=== PATIENT | female | born 1970 | race Caucasian/White ===

== ENCOUNTER 2017-10-01 10:00 | Outpatient (RCR) | payer MEDICAID, SELFPAY ==
--- NOTE | 2017-09-22 11:42 | HMH.PTOPEV ---
Rehab Outpatient Evaluation Rehab OP Evaluation Start: 09/22/17 10:36 Freq: Status: Active Protocol: Document 09/22/17 10:37 TFRY (Rec: 09/22/17 10:59 TFRY [id number]) Electronically Signed By Lilian Stephenson OT 09/22/17 10:37 Outpatient Therapy Subjective History Subjective History THIS IS A 46 YEAR OLD RIGHT HANDED FEMALE REFERRED TO OCCUPATIONAL THERAPY FOR IMPINGEMENT SYNDROME OF LEFT SHOULDER. PATIENT REPORTS THE PROBLEM HAS BEEN ONGOING FOR THE LAST 2-3 MONTHS. SHE CAN NOT RECALL DOING ANYTHING TO HER SHOULDER. Chief Complaint Pain Symptom Type Throb Sharp Other Symptoms Relieved By Rest/Positioning Symptoms Aggravated By Physical Activity Prior Functional Limitations None Current Functional Limitations Reaching Housework Dressing Sleeping Symptom Description Activity Dependent Level of pain today (0-10) 0 Pain scale - at its best (0-10) 0 Pain scale - at its worst (0-10) 9 Shoulder/Elbow Eval Shoulder Objective Measurements Palpation Tenderness tenderness shoulder exam standard left Shoulder Palpation Findings Tenderness Posture Shoulder Posture Sitting Position (L) Rounded Shoulder Posture Standing Position (L) Rounded Shoulder ROM Left Shoulder ROM Limitations Pain Shoulder Abduction Active Range of 100 Motion (degrees) Shoulder Abduction Passive Range of 120 Motion (degrees) Shoulder Flexion Active Range of Motion 115 (degrees) Query Text: Shoulder Flexion Passive Range of Motion 140 (degrees) Shoulder External Rotation Active Range 70 of Motion (degrees) Shoulder External Rotation Passive Range WFL of Motion (degrees) Shoulder Internal Rotation Active Range 30 of Motion (degrees) Shoulder Internal Rotation Passive Range 42 of Motion (degrees) Shoulder Extension Active Range of 43 Motion (degrees) pain with active ROM shoulder exam left standard pain with passive ROM shoulder exam left standard decreased ROM shoulder exam standard left Shoulder MMT Shoulder Abduction Strength Grade 3+ Fair+ Shoulder Extension Strength Grade 3+ Fair+ Shoulder Flexion Strength Grade 3+ Fair+ Shoulder Horizontal Abduction Strength 3+ Fair+
== END 2017-10-01 10:02 | disposition home or self-care (01) ==
LOC: OT 10:00
PROVIDERS: PCP Internal Medicine Adolescent Medicine; Visit Provider Internal Medicine Adolescent Medicine
DX: M75.42 Impingement syndrome of left shoulder (principal)
CPT/HCPCS: 97014; 97033; 97110; 97163; 97165; G0283

== ENCOUNTER 2018-02-10 14:00 | Outpatient (RCR) | payer MEDICAID, SELFPAY ==
--- NOTE | 2018-01-07 10:45 | HMH.PTOPEV ---
Rehab Outpatient Evaluation Rehab OP Evaluation Start: 01/07/18 10:30 Freq: Status: Active Protocol: Document 01/07/18 10:31 RMARSHALL (Rec: 01/07/18 10:45 [facility] [id number]) Electronically Signed By Savannah Yap OT 01/07/18 10:31 Outpatient Therapy Subjective History Subjective History Pt is a 47 year old female who reports to therapy for evaluation to left shoulder. Pt was seen in September for left shoulder, but she was only able to attend two visits because her mother became ill and . Pt reports her pain in the left shoulder started ~1 year ago. She does not recall a specific injury causing the symptoms to begin. At this time, pt demonstrates with decreased AROM and Strength at left shoulder and activity dependent pain. Pt will continue to be seen in order to address these deficits. Chief Complaint Pain Stiff Symptom Type Ache Throb Sharp Dull Stabbing Shooting Symptoms Relieved By Nothing Symptoms Aggravated By Prone Supine Physical Activity Twisting Lifting Prior Functional Limitations None Current Functional Limitations Reaching Lifting Housework Dressing Desk Work/Reading Sleeping Recreation Activity Symptom Description Intermittent Activity Dependent Level of pain today (0-10) 1 Pain scale - at its best (0-10) 1 Pain scale - at its worst (0-10) 8 Shoulder/Elbow Eval Shoulder Objective Measurements Palpation Tenderness tenderness shoulder exam standard left tenderness over the bicipital tendon left shoulder exam standard Shoulder Palpation Findings Tenderness Shoulder Palpation Overall Comment Pt also has tenderness down middle deltoid, celestin
== END 2018-02-10 14:01 | disposition home or self-care (01) ==
LOC: OT 14:00
PROVIDERS: PCP Internal Medicine Adolescent Medicine; Visit Provider Internal Medicine Adolescent Medicine
DX: M75.42 Impingement syndrome of left shoulder (principal)
CPT/HCPCS: 97014; 97033; 97110; 97166; G0283

== ENCOUNTER → 2019-01-05 12:16 | Outpatient (CLI) | payer MEDICAID, SELFPAY ==
[2019-01-05 14:02] LABS: Basophils % 0.7 % (0.1-2.0); Eosinophils # 0.1 K/mm3 (0.0-0.4); Eosinophils % 1.8 % (0.1-12.0); Hematocrit 47.3 % (37.0-47.0); Hemoglobin 15.8 g/dL (12.2-16.2); Lymphocytes # 2.2 K/mm3 (0.7-4.5); Lymphocytes % 40.6 % (10-50); Mean Corpuscular HGB Conc 33.5 g/dL (31.8-35.4); Mean Corpuscular Hemoglobin 28.6 pg (27.0-31.2); Mean Corpuscular Volume 85.5 fl (81-99); Mean Platelet Volume 9.4 fl (7.4-10.4); Monocytes # 0.2 K/mm3 (0.1-1.0); Monocytes % 4.6 % (1.7-9.3); Neutrophils # 2.8 K/mm3 (1.8-7.8); Neutrophils % 52.3 % (37.0-80.0); Platelet Count 345 K/mm3 (142-424); Red Blood Count 5.53 M/mm3 (4.20-5.40); Red Cell Distribution Width 12.8 % (11.5-17.5); White Blood Count 5.3 K/mm3 (4.8-10.8)
[2019-01-05 16:19] LABS: Alanine Aminotransferase 41 U/L (12-78); Albumin Level 4.4 gm/dL (3.4-5.0); Albumin/Globulin Ratio 1.2 (1.1-1.8); Alkaline Phosphatase 78 U/L (46-116); Anion Gap 14.6 mEq/L (5-15); Aspartate Amino Transferase 26 U/L (15-37); Bilirubin,Total 0.7 mg/dL (0.2-1.0); Blood Urea Nitrogen 15 mg/dL (7-18); Calcium 9.7 mg/dL (8.5-10.1); Carbon Dioxide 28 mmol/L (21.0-32.0); Chloride 101 mmol/L (98-107); Chol/HDL Ratio 3.1 (1-3.5); Cholesterol 183 mg/dL (140-200); Creatinine,Serum 0.67 mg/dL (0.55-1.02); Estimated Glomerular Filt Rate 94 ml/min (>60); Free Thyroxine Index 2.3 ug/dL (5.93-13.13); GFR (African American) 113 ML/MIN (>60); Globulin 3.7 gm/dl (1.3-3.2); Glucose 83 mg/dL (74-106); HDL Cholesterol 59 mg/dL (29-89); LDL Cholesterol 104 mg/dL (0-130); Magnesium 2.3 mg/dL (1.4-2.2); Potassium 4.6 mmoL/L (3.5-5.1); Sodium 139 mmol/L (136-145); T4 (Thyroxine) 7.6 ug/dl (4.7-13.3); Thyroid Stimulating Hormone 2.26 uIU/ml (0.358-3.740); Total Protein,Serum 8.1 gm/dL (6.4-8.2); Triglycerides 98 mg/dL (30-200); Triiodothryronine (T3) Uptake 30 % (31-39); VLDL Cholesterol 20 mg/dL (0-40)
[2019-01-08 06:40] LABS: Vitamin B12 650 pg/mL (232-1245); Vitamin D 25 Hydroxy 22.4 ng/mL (30.0-100.0)
== END ==
PROVIDERS: Visit Provider Internal Medicine Adolescent Medicine
DX: Z00.00 Encounter for general adult medical examination without abnormal findings (principal); R53.83 Other fatigue; R53.81 Other malaise; E66.01 Morbid (severe) obesity due to excess calories; E55.9 Vitamin D deficiency, unspecified
CPT/HCPCS: 36415; 80053; 80061; 82607; 82652; 83036; 83735; 84436; 84443; 84479; 85025

== ENCOUNTER → 2019-04-29 12:14 | Outpatient (CLI) | payer MEDICAID, SELFPAY ==
[2019-04-29 13:09] LABS: Basophils # 0.1 K/mm3 (0-0.2); Basophils % 1.1 % (0.1-2.0); Eosinophils # 0.1 K/mm3 (0.0-0.4); Eosinophils % 1.7 % (0.1-12.0); Hematocrit 43.3 % (37.0-47.0); Hemoglobin 14.2 g/dL (12.2-16.2); Lymphocytes # 2.2 K/mm3 (0.7-4.5); Mean Corpuscular HGB Conc 32.7 g/dL (31.8-35.4); Mean Corpuscular Hemoglobin 28.5 pg (27.0-31.2); Mean Corpuscular Volume 87.2 fl (81-99); Mean Platelet Volume 8.7 fl (7.4-10.4); Monocytes # 0.3 K/mm3 (0.1-1.0); Monocytes % 5.4 % (1.7-9.3); Neutrophils # 3.6 K/mm3 (1.8-7.8); Neutrophils % 56.8 % (37.0-80.0); Platelet Count 396 K/mm3 (142-424); Red Blood Count 4.97 M/mm3 (4.20-5.40); Red Cell Distribution Width 12.7 % (11.5-17.5); White Blood Count 6.4 K/mm3 (4.8-10.8)
[2019-04-29 15:21] LABS: Hemoglobin A1C 5.3 % (0.0-7.0)
[2019-04-29 15:33] LABS: Alanine Aminotransferase 39 U/L (12-78); Albumin Level 4.1 gm/dL (3.4-5.0); Albumin/Globulin Ratio 1.1 (1.1-1.8); Alkaline Phosphatase 83 U/L (46-116); Aspartate Amino Transferase 18 U/L (15-37); Bilirubin,Total 0.6 mg/dL (0.2-1.0); Blood Urea Nitrogen 19 mg/dL (7-18); Calcium 9.8 mg/dL (8.5-10.1); Carbon Dioxide 30 mmol/L (21.0-32.0); Chloride 102 mmol/L (98-107); Creatinine,Serum 0.65 mg/dL (0.55-1.02); Estimated Glomerular Filt Rate 97 ml/min (>60); GFR (African American) 117 ML/MIN (>60); Globulin 3.7 gm/dl (1.3-3.2); Glucose 87 mg/dL (74-106); Sodium 140 mmol/L (136-145); T4 (Thyroxine) 9.6 ug/dl (4.7-13.3); Thyroid Stimulating Hormone 2.84 uIU/ml (0.358-3.740); Total Protein,Serum 7.8 gm/dL (6.4-8.2); Triiodothryronine (T3) Uptake 31 % (31-39)
[2019-05-01 16:28] LABS: Vitamin D 25 Hydroxy 30.1 ng/mL (30.0-100.0)
[2019-05-01 16:33] LABS: Vitamin B12 657 pg/mL (232-1245)
[2019-05-03 06:55] LABS: Treponema pallidum Ab (FTA-ABS Non Reactive (Non Reactive)
== END ==
PROVIDERS: Visit Provider Internal Medicine Adolescent Medicine
DX: E55.9 Vitamin D deficiency, unspecified (principal); R20.2 Paresthesia of skin; H53.2 Diplopia
CPT/HCPCS: 36415; 80053; 82607; 82652; 83036; 84436; 84443; 84479; 85025; 86780

== ENCOUNTER → 2019-05-02 16:49 | Outpatient (CLI) | payer MEDICAID, SELFPAY | PROVIDERS: PCP Internal Medicine Adolescent Medicine; Visit Provider Internal Medicine Adolescent Medicine | DX: R20.2 Paresthesia of skin (principal); H53.2 Diplopia ==

== ENCOUNTER → 2019-05-03 16:33 | Outpatient (CLI) | payer MEDICAID, SELFPAY | PROVIDERS: PCP Internal Medicine Adolescent Medicine; Visit Provider Internal Medicine Adolescent Medicine | DX: H53.2 Diplopia (principal); R20.2 Paresthesia of skin ==

== ENCOUNTER → 2019-05-23 13:34 | Outpatient (CLI) | payer MEDICAID, SELFPAY ==
--- NOTE | 2019-05-23 13:38 | CT_ITS ---
PROCEDURE: CT HEAD/BRAIN WO/W CON CLINICAL INDICATION: DIPLOPIA, PARASTHESIA Diplopia, paresthesia, tingling right side of face COMPARISON: No exams were available for comparison TECHNIQUE: IV Contrast: 100ML OPITRAY 320 Images are obtained without and with contrast enhancement Axial images obtained with sagittal and coronal reformats. All CT scans at the facility use one or more dose reduction, viz: automated exposure control, ma/kV adjustment per patient size (including targeted exams where dose is matched to indication, i.e. head), or iterative reconstruction technique. FINDINGS: No midline shift, mass effect, intracranial hemorrhage, hydrocephalus, or extra-axial fluid collection is evident. No enhancing lesions are evident. No large aneurysms apparent. The calvarium has an unremarkable appearance. No mastoid effusion no sinus air-fluid level IMPRESSION: Negative CT head without and with contrast Dictated by: Hima Gong MD 05/23/2019 16:24 Electronically signed by Hima Gong MD in [place] 05/23/2019 16:24
== END ==
PROVIDERS: PCP Internal Medicine Adolescent Medicine; Visit Provider Internal Medicine Adolescent Medicine
DX: H53.2 Diplopia (principal); R20.2 Paresthesia of skin
CPT/HCPCS: 70470; Q9967

== ENCOUNTER → 2020-05-26 09:29 | Outpatient (CLI) | payer BC, SELFPAY ==
[2020-05-26 10:19] LABS: Basophils # 0.1 K/mm3 (0-0.2); Eosinophils # 0.1 K/mm3 (0.0-0.4); Eosinophils % 1.8 % (0.1-12.0); Hematocrit 40.2 % (37.0-47.0); Hemoglobin 13.9 g/dL (12.2-16.2); Lymphocytes # 1.9 K/mm3 (0.7-4.5); Lymphocytes % 33.7 % (10-50); Mean Corpuscular HGB Conc 34.5 g/dL (31.8-35.4); Mean Corpuscular Hemoglobin 30.2 pg (27.0-31.2); Mean Corpuscular Volume 87.3 fl (81-99); Monocytes # 0.3 K/mm3 (0.1-1.0); Monocytes % 5.2 % (1.7-9.3); Neutrophils # 3.2 K/mm3 (1.8-7.8); Neutrophils % 58.4 % (37.0-80.0); Platelet Count 293 K/mm3 (142-424); Red Blood Count 4.61 M/mm3 (4.20-5.40); Red Cell Distribution Width 12.3 % (11.5-17.5); White Blood Count 5.5 K/mm3 (4.8-10.8)
[2020-05-26 10:40] LABS: Chloride 104 mmol/L (98-107); Potassium 5.5 mmoL/L (3.5-5.1); Sodium 140 mmol/L (136-145)
[2020-05-26 10:42] LABS: Alanine Aminotransferase 55 U/L (12-78); Alkaline Phosphatase 100 U/L (38-126); Aspartate Amino Transferase 61 U/L (14-36); Bilirubin,Total 0.6 mg/dl (0.2-1.3); Blood Urea Nitrogen 21 mg/dl (7-17); Estimated Glomerular Filt Rate 89 ml/min (>60); GFR (African American) 107 ML/MIN (>60)
[2020-05-26 10:43] LABS: Albumin Level 4.1 g/dl (3.5-5.0); Albumin/Globulin Ratio 1.4 (1.1-1.8); Anion Gap 13.5 mEq/L (5-15); Calcium 9.9 mg/dl (8.4-10.2); Carbon Dioxide 28 mmol/L (22.0-30.0); Globulin 2.9 g/dL (1.3-3.2); Glucose 103 mg/dl (74-100); Iron 87 ug/dL (37-170)
[2020-05-26 10:57] LABS: Total Iron Binding Capacity 319 ug/dL (265-497)
[2020-05-26 11:24] LABS: Ferritin 244 ng/ml (6.24-137)
[2020-05-27 10:44] LABS: RA Latex Turbid. <10.0 IU/mL (0.0-13.9)
[2020-05-28 14:11] LABS: Anti-Centromere B Antibodies <0.2 AI (0.0-0.9); Anti-Jo-1 <0.2 AI (0.0-0.9); Anti-Smith Antibody <0.2 AI (0.0-0.9); Antichromatin Antibodies <0.2 AI (0.0-0.9); Antiscleroderma-70 Antibodies <0.2 AI (0.0-0.9); RNP Antibodies <0.2 AI (0.0-0.9); Sjogren's Anti-SS-A <0.2 AI (0.0-0.9); Sjogren's Anti-SS-B <0.2 AI (0.0-0.9)
[2020-05-28 15:40] LABS: Anti-DNA (DS) Ab Qn 1 IU/mL (0-9)
[2020-05-29 14:01] LABS: Anti-Cyclic Citrullinated Pept 38 units (0-19)
== END ==
PROVIDERS: Visit Provider Internal Medicine Adolescent Medicine
DX: R20.2 Paresthesia of skin (principal)
CPT/HCPCS: 36415; 80053; 82728; 83540; 83550; 85025; 86200; 86225; 86235; 86431

== ENCOUNTER → 2020-07-19 11:54 | Outpatient (CLI) | payer BC, SELFPAY ==
[2020-07-20 14:10] LABS: Covid-19 Nasal PCR Sendout Lex NOT DETECTED
== END ==
PROVIDERS: PCP Internal Medicine Adolescent Medicine; Visit Provider Nurse Practitioner Family
DX: Z03.818 Encounter for observation for suspected exposure to other biological agents ruled out (principal); R05 Cough
CPT/HCPCS: U0004

== ENCOUNTER 2020-11-30 11:05 | Emergency (ER) | payer BC, SELFPAY ==
[2020-11-30] VITALS (15 sets, daily range): BP systolic 112–150; BP diastolic 57–66; PULSE 75–92; RESP 15–24; TEMP 37.2; O2SAT 95–100; BMI 47.4
--- NOTE | 2020-11-30 11:18 | CT_ITS ---
Procedure: CT ANGIO NECK CLINICAL HISTORY: left side paresthesia Presyncope, balance COMPARISON: CT CT ANGIO HEAD from 11/30/2020 TECHNIQUE: IV Contrast: 100ml Isovue 370 Axial images obtained with sagittal and coronal reformats. All CT scans at the facility use one or more dose reduction, viz: automated exposure control, ma/kV adjustment per patient size (including targeted exams where dose is matched to indication, i.e. head), or iterative reconstruction technique. FINDINGS: CTA neck: The aortic arch, great vessels, carotid arteries, and vertebral arteries have an unremarkable appearance. No significant stenosis, dissection, or aneurysm apparent. CTA brain: The cavernous portion of the ICAs are unremarkable. No aneurysm, AVM, or major branch occlusive changes evident. The M1 segment of the left middle cerebral artery has a somewhat beaded appearance without significant stenosis. The M1 segment on the right has an unremarkable appearance. The P1 segment of the left posterior cerebral artery also has a somewhat beaded appearance. Luminal irregularity involves the P2 segment of the right posterior cerebral artery. No major occlusive change apparent. No enhancing lesions are evident. IMPRESSION: 1. CTA neck: Unremarkable. No stenotic lesions dissection or other significant anomalies. 2. CTA brain: Beaded appearance involves the M1 segment of the left middle cerebral artery and left P1 segment. This is a nonspecific finding but could be seen with atherosclerotic change, fibromuscular dysplasia, or vasculitis. These areas do not cause any significant stenosis 3. Luminal irregularity involves the P2 segment of the right posterior cerebral artery more suggestive of atherosclerotic changes. Dictated by: Hima Gong MD 11/30/2020 13:34 Hima Gong MD in [place] 11/30/2020 13:35
--- NOTE | 2020-11-30 11:18 | CT_ITS ---
PROCEDURE: CT HEAD/BRAIN WO CON CLINICAL INDICATION: left side paresthesia Left-sided facial tingling, presyncope and try allan history 3 hiatal thickening drink to the at the at [place] COMPARISON: CT CT HEAD/BRAIN WO/W CON from 05/23/2019 TECHNIQUE: Axial images obtained. All CT scans at the facility use one or more dose reduction, viz: automated exposure control, ma/kV adjustment per patient size (including targeted exams where dose is matched to indication, i.e. head), or iterative reconstruction technique. FINDINGS: No midline shift, mass effect, intracranial hemorrhage, hydrocephalus, or extra-axial fluid collection is evident. The calvarium has an unremarkable appearance. No mastoid effusion. No sinus air-fluid level. IMPRESSION: No acute intracranial finding Dictated by: Hima Gong MD 11/30/2020 13:20 Hima Gong MD in [place] 11/30/2020 13:20
--- NOTE | 2020-11-30 11:23 | HMH.EDGENADL ---
ED Disposition Clinical Impression: TIA (transient ischemic attack) Disposition: Home, Self-Care Condition on Discharge: Good Additional Instructions: Return the emergency department for weakness numbness or recurrent dizziness. Otherwise follow-up with your neurologist within the next few days Referrals: Aureliano Moncada MD [Primary Care Provider] - - Critical Care Critical Care Time: No Attestation: On 11/30/20, the high probability of a clinically significant, sudden or life threatening deterioration of the following system(s) required my full and direct attention, intervention and personal management. The time I documented below is in addition to time spent performing reported procedures but includes the following listed in this critical care notation. Medical Decision Making - Medical Records Medical records reviewed: Yes: I reviewed the patient's medical records. - Mian Inquiry Pt receiving controlled substance: No Vital Signs: 11/30/20 11:07 11/30/20 11:11 11/30/20 11:12 Temperature 99.0 F Temperature Source Oral Pulse Rate 92 H 87 Pulse Rate [Left Radial] 92 H Respiratory Rate 21 20 Blood Pressure 150/66 H Blood Pressure [Right Arm] 150/66 H Blood Pressure Mean 95 Blood Pressure Mean [Right Arm] 94 Blood Pressure Source [Right Arm] Automatic Cuff Blood Pressure Position [Right Arm] Sitting 02 Sat by Pulse Oximetry 99 99 99 Oxygen Delivery Method Room Air 11/30/20 11:15 11/30/20 11:30 11/30/20 11:31 Temperature Temperature Source Pulse Rate 87 86 89 Pulse Rate [Left Radial] Respiratory Rate 16 16 15 Blood Pressure 127/61 127/61 Blood Pressure [Right Arm] Blood Pressure Mean 83 Blood Pressure Mean [Right Arm] Blood Pressure Source [Right Arm] Blood Pressure Position [Right Arm] 02 Sat by Pulse Oximetry 99 97 98 Oxygen Delivery Method 11/30/20 12:01 11/30/20 12:15 11/30/20 13:04 Temperature Temperature Source Pulse Rate 79 80 86 Pulse Rate [Left Radial] Respiratory Rate 19 24 Blood Pressure 118/58 L Blood Pressure [Right Arm] Blood Pressure Mean 81 Blood Pressure Mean [Right Arm] Blood Pressure Source [Right Arm] Blood Pressure Position [Right Arm] 02 Sat by Pulse Oximetry 100 99 95 Oxygen Delivery Method 11/30/20 13:15 11/30/20 13:17 Temperature Temperature Source Pulse Rate 75 77 Pulse Rate [Left Radial] Respiratory Rate 22 20 Blood Pressure 114/59 L Blood Pressure [Right Arm] Blood Pressure Mean 75 Blood Pressure Mean [Right Arm] Blood Pressure Source [Right Arm] Blood Pressure Position [Right Arm] 02 Sat by Pulse Oximetry 99 100 Oxygen Delivery Method - Lab Data Lab Results 11/30/20 11:30: WBC 5.2, RBC 4.83, Hgb 13.5, Hct 42.6, MCV 88.2, MCH 28.1, MCHC 31.8, RDW 12.4, Plt Count 323, MPV 8.8, Neut % (Auto) 57.3, Lymph % (Auto) 34.5, [place] % (Auto) 4.8, Eos % (Auto) 2.4, Baso % (Auto) 1.1, Neut # (Auto) 3.0, Lymph # (Auto) 1.8, [place] # (Auto) 0.3, Eos # (Auto) 0.1, Baso # (Auto) 0.1 11/30/20 11:30: Sodium 140, Potassium 4.2, Chloride 105, Carbon Dioxide 29, Anion Gap 6.0, BUN 19 H, Creatinine 0.70, Estimated Creat Clear 86, Estimated GFR 88, Est GFR ( Amer) 107, Glucose 106 H, Calcium 9.8, Magnesium 2.0, TSH 3.32 Result diagrams: 11/30/20 11:30 11/30/20 11:30 Orders (Tests/Meds): ED MEDICATIONS Discontinued Medications Generic Name Dose Route Start Last Admin Trade Name Freq PRN Reason Stop Dose Admin Iopamidol 100 ml 11/30/20 13:44 11/30/20 13:46 Iopamidol-370 (76%);100ml Bottle IV 11/30/20 13:45 100 ml ONCE ONE Administration Sodium Chloride 40 ml 11/30/20 13:41 11/30/20 13:46 0.9 % Sodium Chloride 50 Ml Vial IV 11/30/20 13:42 40 ml ONCE ONE Administration Medical Decision Narrative: Well presents with resolved left-sided paresthesia. Episode lasted less than a minute blood pressure is normal. ABCD2 score is 0. Ot
[2020-11-30 11:40] LABS: Basophils # 0.1 K/mm3 (0-0.2); Basophils % 1.1 % (0.1-2.0); Eosinophils # 0.1 K/mm3 (0.0-0.4); Eosinophils % 2.4 % (0.1-12.0); Hematocrit 42.6 % (37.0-47.0); Hemoglobin 13.5 g/dL (12.2-16.2); Lymphocytes # 1.8 K/mm3 (0.7-4.5); Lymphocytes % 34.5 % (10-50); Mean Corpuscular HGB Conc 31.8 g/dL (31.8-35.4); Mean Corpuscular Hemoglobin 28.1 pg (27.0-31.2); Mean Corpuscular Volume 88.2 fl (81-99); Mean Platelet Volume 8.8 fl (7.4-10.4); Monocytes # 0.3 K/mm3 (0.1-1.0); Monocytes % 4.8 % (1.7-9.3); Neutrophils % 57.3 % (37.0-80.0); Platelet Count 323 K/mm3 (142-424); Red Blood Count 4.83 M/mm3 (4.20-5.40); Red Cell Distribution Width 12.4 % (11.5-17.5); White Blood Count 5.2 K/mm3 (4.8-10.8)
[2020-11-30 11:47] LABS: Chloride 105 mmol/L (98-107); Potassium 4.2 mmoL/L (3.5-5.1); Sodium 140 mmol/L (136-145)
[2020-11-30 11:50] LABS: Blood Urea Nitrogen 19 mg/dl (7-17); Calcium 9.8 mg/dl (8.4-10.2); Carbon Dioxide 29 mmol/L (22.0-30.0); Creatinine Clearance Estimated 86 mL/min (50-200); Estimated Glomerular Filt Rate 88 ml/min (>60); GFR (African American) 107 ML/MIN (>60); Glucose 106 mg/dl (74-100)
--- NOTE | 2020-11-30 12:19 | PC.NURSE ---
pt going to rad.
[2020-11-30 12:22] LABS: Thyroid Stimulating Hormone 3.32 uIU/mL (0.465-4.68)
== END 2020-11-30 14:25 | disposition home or self-care (01) ==
PROVIDERS: Emergency Provider Emergency Medicine; PCP Internal Medicine Adolescent Medicine
DX: G45.8 Other transient cerebral ischemic attacks and related syndromes (principal)
CPT/HCPCS: 70450; 70496; 70498; 80048; 83735; 84443; 85025; 99282; Q9967

== ENCOUNTER 2021-02-12 11:00 | Outpatient (RCR) | payer BC, SELFPAY | END 2021-02-12 11:05 | disposition home or self-care (01) | LOC: PT 11:00 | PROVIDERS: PCP Internal Medicine Adolescent Medicine; Visit Provider Internal Medicine Rheumatology | DX: M79.10 Myalgia, unspecified site (principal) | CPT/HCPCS: 97110; 97113; 97163; 97164 ==

== ENCOUNTER 2024-01-11 18:04 | Emergency (ER) | payer BC, SELFPAY ==
[2024-01-11 18:20] VITALS: BP 155/71; PULSE 91; RESP 18; TEMP 36.6; O2SAT 96; BMI 54.2
--- NOTE | 2024-01-11 18:27 | EXP.UTC ---
Discharge Plan Disposition Patient Disposition: Home, Self-Care Condition: Good Prescriptions Prescriptions: New mupirocin 2 % ointment 1 applic topical TID 7 Days Qty: 15 0RF amoxicillin-pot clavulanate 875-125 mg Tablet 1 tab PO Q12H Qty: 20 0RF No Action gabapentin 300 MG capsule 300 mg PO TID ergocalciferol (vitamin D2) 50,000 UNIT capsule 50,000 unit PO WEEKLY hydroxychloroquine 200 mg tablet 200 mg PO DAILY duloxetine 30 mg capsule,delayed release(DR/EC) 30 mg PO BID Patient Comments: TAKE 1 CAPSULE BY MOUTH TWICE DAILY Referrals Follow up/Referrals: Frankie Ritter MD [Primary Care Provider] - See instructions Activity Restrictions/Add. Instructions Additional Instructions/Restrictions: Rest the extremity as much time as tolerated for the next couple of days. Elevate the extremity as tolerated while you are resting. Keep the wounds clean and dry. Follow up with your regular doctor. Take the antibiotics as directed and apply the topical antibiotics as directed. Make sure you stay in contact with the health department regarding the health of the dog. Follow their instructions regarding if you need to return for rabies vaccination. Watch the puncture wounds for signs of worsening infection, such as worsening redness, drainage, swelling, etc. 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 She was making a delivery to a house when the dog came out of nowhere and bit her. She is unsure about the vaccination status of the dog. Her tetanus immunization is not up to date. She is not a diabetic. Related Data Home Medications Medication Instructions Recorded Confirmed ergocalciferol (vitamin D2) 1,250 50,000 unit PO WEEKLY Supplement 11/30/20 01/11/24 mcg (50,000 unit) capsule gabapentin 300 mg capsule 300 mg PO TID Pain 11/30/20 01/11/24 duloxetine 30 mg capsule,delayed 30 mg PO BID 01/11/24 01/11/24 release hydroxychloroquine 200 mg tablet 200 mg PO DAILY 01/11/24 01/11/24 Previous Rx's Medication Instructions Recorded amoxicillin 875 mg-potassium 1 tab PO Q12H #20 tabs 01/11/24 clavulanate 125 mg tablet mupirocin 2 % topical ointment 1 applic topical TID 7 days #15 01/11/24 grams Allergies Allergy/AdvReac Type Severity Reaction Status Date / Time No Known Allergies Allergy Verified 01/11/24 18:36 [facility] Disclaimer: The information contained in this section may have been updated after the patient was seen, as this information can be updated by other users. Social History Smoking Status: Never smoker alcohol intake: never current occupational status: employed Travel in the last 8 weeks: None ROS Obtained: Yes All systems reviewed & no additional complaints except as documented Constitutional Constitutional: Denies chills and Denies fever(s) Eyes Eyes: Denies eye discharge ENT Ears, Nose, Mouth, and Throat: Denies dizziness, Denies otalgia and Denies sore throat Cardiovascular Cardiovascular: Denies chest pain Respiratory Respiratory: Denies shortness of breath, Denies chest congestion, Denies cough, Denies stridor and Denies wheezing Gastrointestinal Gastrointestingal: Denies nausea or vomiting Musculoskeletal Musculoskeletal: Reports system reviewed and no additional complaints, except as documented and Denies arthralgias Integumentary/Breasts Skin/Breast: Reports as per HPI and Reports wounds Neurologic Neurologic: Denies dizziness and Denies paresthesias Allergic/Immunologic Allergic/Immunologic: Denies wheezing Physical Exam General General appearance: alert and in no apparent distress Head Head exam: atraumatic, normocephalic and normal inspection Eye Eye exam: Present normal appearance, PERRL and EOMI ENT ENT exam: Present normal exam, normal oropharynx, mucous membranes moist, TM's normal bilaterally and normal external ear exam Neck Neck exam: Present normal inspection, full ROM and trachea midline; Absent meningismus or lymphadenopathy Chest Chest inspection: Present normal inspection and symmetric chest wall rise; Absent tenderness Respiratory Respiratory exam: Present normal lung sounds bilaterally; Absent respiratory distress Cardiovascular Cardiovascular exam: Present regular rate and normal rhythm; Absent JVD Abdominal Exam Abdominal exam: Present soft and normal bowel sounds; Absent distention, tenderness or guarding Extremities Exam Extremities exam: Present normal inspection, full ROM and normal capillary refill; Absent calf tenderness Back Exam Back exam: Present normal inspection; Absent tenderness Neurological Exam Neurological exam: Present alert and oriented X3 Psychiatric Psychiatric exam: Present normal affect and normal mood Skin Skin exam: Present other (there is an area of bruising on the inner aspect of her left thigh, just above her knee. there are 2 superficial linear abrasions and 2 deeper puncture wounds noted. the puncture wounds measure 0.5 cm in length. there is no deep tissue damage, and no foreign body such as a broken tooth.) Lymphatic Lymphatic Findings: no adenopathy Medical Decision Making Medical Records Medical records reviewed: No I reviewed the patient's medical records. Mian Inquiry Pt receiving controlled substance: No Medical Decision Narrative: The dog bite was cleaned thoroughly. It was elected to leave the 2 puncture wound open due to their small size.
[2024-01-11] MEDS: TET/DIPHTH/PERT-ADULT 0.5ML SYRINGE 0.5 ML IM (19:15)
[2024-01-11 19:46] VITALS: BP 155/71; PULSE 91; RESP 18; TEMP 36.6; O2SAT 96
--- NOTE | 2024-01-11 19:47 | PC.NURSE ---
Pt had 2 puncture holes on back of leg with 2 abrasion. Cleaned and dressed with nonadhearing pad with tegaderm.
== END 2024-01-11 19:46 | disposition home or self-care (01) ==
PROVIDERS: Emergency Provider Nurse Practitioner Family; PCP Internal Medicine Adolescent Medicine
DX: S71.152A Open bite, left thigh, initial encounter (principal); W54.0XXA Bitten by dog, initial encounter; Z23 Encounter for immunization
CPT/HCPCS: 90471; 90715; 99204; 99212; G0463

== ENCOUNTER 2024-02-02 14:50 | Emergency (ER) | payer BC, SELFPAY ==
[2024-02-02 15:00] VITALS: BP 136/74; PULSE 87; RESP 18; TEMP 36.6; O2SAT 96; BMI 53.8
--- NOTE | 2024-02-02 15:10 | ED_ITS ---
Discharge Plan Disposition Patient Disposition: Home, Self-Care Condition: Good Prescriptions Prescriptions: New prednisone 10 mg tablet 10 mg PO BID 5 Days Qty: 10 0RF benzonatate 100 mg capsule 100 mg PO TID PRN (Reason: cough) Qty: 30 0RF amoxicillin-pot clavulanate 875-125 mg Tablet 1 tab PO Q12H Qty: 20 0RF guaifenesin [Mucinex] 600 mg tablet extended release 12hr 1,200 mg PO BID PRN (Reason: cough) Qty: 20 0RF No Action ergocalciferol (vitamin D2) 50,000 UNIT capsule 50,000 unit PO WEEKLY hydroxychloroquine 200 mg tablet 200 mg PO DAILY duloxetine 30 mg capsule,delayed release(DR/EC) 30 mg PO BID Patient Comments: TAKE 1 CAPSULE BY MOUTH TWICE DAILY Referrals Follow up/Referrals: Frankie Ritter MD [Primary Care Provider] - See instructions Activity Restrictions/Add. Instructions Additional Instructions/Restrictions: * Start antibiotic today. Be sure to complete entire prescription even if feeling better * Monitor temp. Tylenol every 4 hours as needed and / or ibuprofen every 6 hours as needed ( As long as your primary care physician has told you that it ok to take both. For fever/aches/pains ER if no less than 101 despite Tylenol or Motrin * Humidifier/vaporizer or hot steamy shower * Mucinex during the day for your cough and cough suppressant only at night. Be sure to drink lots of water. *Tessalon Perles will not cause drowsiness but use at bedtime to help stop cough so that you may get some rest. *Start steroid today. Helps with inflammation therefore, cough and wheezing. Follow directions on the package. Reviewed side effects. Patient reports taking them before. Follow up IMMEDIATELY for new or worsening of symptoms OR no noticeable improvement over the next 48-72 hours. 911 immediately for any life threatening symptoms such as chest pain or difficulty breathing Clinical Impressions Clinical Impression: Sinusitis, Bronchitis Instructions Patient Instructions: DI for Sinusitis, DI for Acute Bronchitis Discharge ED Provider: Lyly Gallegos [facility] [place] HPI General Stated complaint: cough, soa, fever Mode of Arrival: Ambulatory Source of Information: Patient Limitations: No Limitations Time Seen by Provider: 02/02/24 15:10 Description of Symptoms (Recalled from Triage Doc. by RN): Pt's symptoms are cough, and cannot catch breath with activity. HEENT Symptoms (Recalled from RN notes): Yes Resp Symptoms (Recalled from RN notes): No Skin Symptoms (Recalled from RN notes): No MS Symptoms (Recalled from RN notes): No Functional Status (Recalled from RN notes): n/a History of Present Illness Provider Complaint: Patient states that she has been having sinus congestion, drainage in the back of her throat, cough, and states when she has a coughing episode it is hard to catch her breath and not been able to rest well due to the cough at night States that when she gets hot her coughing is worse States today she was still not feeling well so she came in to get checked Related Data Home Medications Medication Instructions Recorded Confirmed ergocalciferol (vitamin D2) 1,250 50,000 unit PO WEEKLY Supplement 11/30/20 02/02/24 mcg (50,000 unit) capsule duloxetine 30 mg capsule,delayed 30 mg PO BID 01/11/24 02/02/24 release hydroxychloroquine 200 mg tablet 200 mg PO DAILY 01/11/24 02/02/24 Previous Rx's Medication Instructions Recorded amoxicillin 875 mg-potassium 1 tab PO Q12H #20 tabs 02/02/24 clavulanate 125 mg tablet benzonatate 100 mg capsule 100 mg PO TID PRN cough #30 caps 02/02/24 guaifenesin 600 mg tablet, 1,200 mg (2 x 600 mg) PO BID PRN 02/02/24 extended release 12 hr (Mucinex) cough #20 tabs prednisone 10 mg tablet 10 mg PO BID 5 days #10 tabs 02/02/24 Allergies Allergy/AdvReac Type Severity Reaction Status Date / Time No Known Allergies Allergy Verified 02/02/24 15:07 Worker's Comp Is this a Worker's Comp case?: No [facility] Disclaimer: The information contained in this section may have been updated after the patient was seen, as this information can be updated by other users. Medical History (Updated 02/02/24 @ 15:31 by Lyly Gallegos APRN) Abnormal electrocardiogram [ECG] [EKG] Encounter for pre-operative cardiovascular clearance Rheumatoid arthritis Family History Mother Coronary artery disease Stroke Heart attack Sister Diabetes Social History Smoking Status: Never smoker alcohol intake: never current occupational status: employed Travel in the last 8 weeks: None ROS Obtained: Yes All systems reviewed & no additional complaints except as documented and Yes Systems reviewed as appropriate & no additional complaints except as documented Constitutional Constitutional: Reports system reviewed and no additional complaints, except as documented, Reports as per HPI, Reports body ache, Reports fatigue and Reports fever(s) (felt feverish last night) ENT Ears, Nose, Mouth, and Throat: Reports system reviewed and no additional complaints, except as documented, Reports as per HPI and Reports nasal congestion Cardiovascular Cardiovascular: Reports system reviewed and no additional complaints, except as documented and Reports as per HPI Respiratory Respiratory: Reports system reviewed and no additional complaints, except as documented, Reports as per HPI, Reports shortness of breath (at times after coughing episode), Reports chest congestion and Reports cough Gastrointestinal Gastrointestingal: Reports system reviewed and no additional complaints, except as documented and as per HPI Endocrine Endocrine: Reports fatigue Physical Exam General General appearance: alert and in no apparent distress ENT ENT exam: Present mucous membranes moist Expanded ENT Exam Nose exam: Present sinus tenderness Throat exam: Present other (pharyngeal erythema noted with PND) Respiratory Respiratory exam: Present normal lung sounds bilaterally; Absent respiratory distress or wheezes Cardiovascular Cardiovascular exam: Present regular rate, normal rhythm and normal heart sounds Neurological Exam Neurological exam: Present alert, oriented X3 and normal gait Medical Decision Making Mian Inquiry Pt receiving controlled substance: No Mian was queried for this patient: No Vital Signs: 02/02/24 15:00 Temperature 97.9 F Temperature Source Oral Pulse Rate [Right Radial] 87 Respiratory Rate 18 Blood Pressure [Right Arm] 136/74 Blood Pressure Mean [Right Arm] 94 Blood Pressure Source [Right Arm] Automatic Cuff Blood Pressure Position [Right Arm] Sitting 02 Sat by Pulse Oximetry 96 Oxygen Delivery Method Room Air Medical Decision Narrative: Patient states that she has taken steriods in the past without complications or reactions
[2024-02-02 15:37] VITALS: BP 136/74; PULSE 87; RESP 18; TEMP 36.6; O2SAT 96
== END 2024-02-02 15:37 | disposition home or self-care (01) ==
PROVIDERS: Emergency Provider Nurse Practitioner; PCP Internal Medicine Adolescent Medicine
DX: J20.9 Acute bronchitis, unspecified (principal); J01.90 Acute sinusitis, unspecified; R09.82 Postnasal drip; R05.1 Acute cough
CPT/HCPCS: 99212; 99214; G0463

== ENCOUNTER 2024-02-17 07:26 | Outpatient (CLI) | payer BC, SELFPAY ==
--- NOTE | 2024-02-17 07:26 | CT_ITS ---
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 A noncontrast coronary calcium scan was performed. A CT attenuation threshold of 130 Hounsfield units (HU) was used for the detection of calcium in contiguous voxels of 1 sq mm in area to be counted as individual lesions. Bolus tracking in the ascending aorta with a threshold of 180 HU was performed. Immediately afterwards, ECG synchronized cardiac CT was then performed from the cardiac base to apex using retrospective gating with ECG tube current modulation. A total of 85 mL of Isovue 370 mg/mL contrast medium was administered at 5 mL/sec followed by a saline flush using a biphasic injection protocol. A tube voltage of 120 KVp was used. The patient received the following medications prior to the cardiac CT. 150 mg of oral metoprolol 15 mg of oral ivabradine 0.8 mg of sublingual nitroglycerin The average heart rate at the time of acquisition was 59 bpm and regular. Image Reconstruction Transaxial images were reconstructed at 0.67 mm slide thickness. Data was reviewed interactively on an advanced workstation capable of 2 and 3-dimensional displays in all conventional reconstruction formats, including multiplanar reformations, maximum intensity projections, curved multiplanar reformations, and volume rendered reconstructions. When applicable, selected routine images describing the relevant coronary anatomy and pathology were saved and sent to PACS. Complications None Technical Quality Overall image quality was good. Coronary artery opacification was adequate. Total DLP (Dose-Length Product) is 1738.1 mGy-cm. The reported value represents the total of one or more individual components during the CT acquisition of this date and at this time, and as such, the same value may appear in more than one CT report depending on the interpreting/reporting physicians. COMPARISON None FINDINGS CT Coronary Calcium Scoring LMA (Left Main Artery) = 0 LAD (Left Anterior Descending) = 0 LCX (Left Coronary Circumflex) = 0 RCA (Right Coronary Artery) = 0 Total Calcium Score = 0 using the AJ-130 method. The interpretation of the calcium heart score is based on the following continuum*: 0 = no calcified plaque detected (risk of coronary artery disease is very low ??? less than 5%) 1-10 = calcium detected in extremely minimal levels (risk of coronary diseases is still low ??? less than 10%) 11-100 = mild levels of plaque detected with certainty (mild or minimal narrowing of heart arteries is likely) 101-400 = definite,at least moderate levels of plaque detected (relatively high risk of a heart attack within 3-5 years) >401-999 = extensive levels of plaque detected (high risk of heart attack, high levels of vascular disease are present, high likelihood of at least one significant coronary narrowing) *The calcium heart score quantifies the burden of coronary calcification/plaque in the coronary arteries. The calcium heart score is not able to evaluate the presence or burden of non-calcified (i.e. soft) plaque. There is no identifiable calcification in the aortic valve, mitral annulus or mitral valve, pericardium, or myocardium. Coronary CT Angiography The coronary arterial system is right dominant. Quantitative Stenosis Grading: Left Main (LM): The left main originates normally from the left sinus of Valsalva. The LM bifurcates into the left anterior descending artery and left circumflex artery. The LM is patent with no evidence of atherosclerosis. Left Anterior Descending (LAD) and Diagonal Branches: The LAD gives off 2 diagonal branch(es). The LAD and its branches are patent with no evidence of atherosclerosis. There is a [id number] bridge present, measuring 15 mm in length and 2 mm in depth. Left Circumflex (LCX) and Obtuse Marginals (OM): The LCX gives off 1 Obtuse Marginal (OM) branch(es). The LCX and its branches are patent with no evidence of atherosclerosis. Right Coronary Artery (RCA): The RCA originates normally from the right sinus of Valsalva. The RCA gives off a posterior descending artery (PDA) and posterolateral (PL) branches. The RCA and its branches are patent with no evidence of atherosclerosis. Non-Coronary Cardiac Findings: Analysis of the left ventricular (LV) structure and function was performed after 3-D reconstruction of the LV from axial images, with user-corrected automatic contouring for assessment of LV volumes and user-defined reconstruction from oblique planes for measurement of 3-D cardiac structure and function. -The left ventricle systolic function is normal. -There is no left atrial appendage filling defect. Two right pulmonary veins and two left pulmonary veins drain normally into the left atrium. -No pericardial thickening or calcification. -Central and branch pulmonary arteries in the [id number] are unremarkable. -Thoracic aorta within the visualized thoracic aortic-branches in the [id number] is unremarkable. Extracardiac Structures No significant extra-cardiac findings. Note, however, that this study is focused on the cardiac findings. IMPRESSION -No coronary calcification with an Agatston score = 0 using the AJ-130 method. -No evidence of significant flow-limiting atherosclerosis of the coronary arteries. 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 -CAD-RADS 0. Management recommendations per ACC/AHA guidelines*, as clinically appropriate. *Recommendations: CAD RADS 0: Reassurance. Consider non-atherosclerotic causes of chest pain. CAD RADS 1: Consider non-atherosclerotic causes of chest pain. Consider preventive therapy and risk factor modification. CAD RADS 2: Consider non-atherosclerotic causes of chest pain. Consider preventive therapy and risk factor modification, particularly for patients with nonobstructive plaque in multiple segments. CAD RADS 3: Consider further functional testing. Consider symptom-guided anti-ischemic and preventive pharmacotherapy as well as risk factor modification per published guideline statements. CAD RADS 4A: Consider further functional testing or invasive coronary angiography with revascularization per published guideline statements. Consider symptom-guided anti-ischemic and preventive pharmacotherapy as well as risk factor modification per published guideline statements. CAD RADS 4B: Invasive coronary angiography recommended with revascularization per published guideline statements. Consider symptom-guided anti-ischemic and preventive pharmacotherapy as well as risk factor modification per published guideline statements. CAD RADS 5: Consider invasive angiography and/or viability assessment with revascularization per published guideline statements. Consider symptom-guided anti-ischemic and preventive pharmacotherapy as well as risk factor modification per published guideline statements. CRITICAL RESULT None COMMUNICATION Per this written report The coronary and cardiac findings of this CCTA were reviewed, reported, and signed by Sal Ramos MD (Medical Records Assistant) Conclusion Electronically signed by : Bia Ramos MD 02/23/2024 14:32:47
[2024-02-17 07:52] VITALS: BMI 54.1
[2024-02-17 07:55] VITALS: BP 141/92; PULSE 82; RESP 18; O2SAT 98
[2024-02-17] MEDS: METOPROLOL TARTRATE 50MG TABLET PO ×2 (08:15→09:00)
[2024-02-17] MEDS: IVABRADINE HCL 7.5MG TABLET PO (08:15)
[2024-02-17 08:42] LABS: Chloride 103 mmol/L (98-107); Potassium 4.5 mmoL/L (3.5-5.1); Sodium 139 mmol/L (136-145)
[2024-02-17 08:45] LABS: Anion Gap 10.5 mEq/L (5-15); Blood Urea Nitrogen 17 mg/dl (7-17); Carbon Dioxide 30 mmol/L (22.0-30.0); Creatinine Clearance Estimated 72 mL/min (50-200); Estimated Glomerular Filt Rate 75 ml/min (>60); GFR (African American) 90 ML/MIN (>60)
--- NOTE | 2024-02-17 08:45 | CA_ITS ---
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 Templeton, RVS Ht: 5 ft 5 in Wt: 325lbs BSA: 2.43 BP: 124/70 mmHg Indications: Pre-op weight loss surgery, SOB 2D Dimensions Left Atrium 3.71 cm LA Volume 80.50 mL LA Volume Index 32.30 mL/m2 (M/F) 16-34 EF AP4 68.20 % GL Strain -31.6 % M-Mode Dimensions RVDd 2.12 cm (0.9-2.6) LA Diam 4.27 cm (1.9-4.0) LVDd 5.46 cm (3.5-5.7) LVDs 3.75 cm (3.5-5.7) IVSd 0.98 cm (0.6-1.1) PWd 0.83 cm (0.6-1.1) EF (Teich) 58.60% EPSs 0.80 cm FS 31.30% EDV (Teich) 145.00 mL TAPSE 2.63 (<1.7) ESV (Teich) 60.00 mL LV Diastology E Decel Time 300 (160-240 msec) E/A Ratio 1.48 MED A' 10.80 cm/s LAT A' 12.20 cm/s Aortic Valve RANJAN Index 1.04 cm2/m2 AoV Peak Ancelmo. 142.0 (50-130 cm/s) AO Peak GR. 8.10 mmHg AO Mean GR. 4.10 (<5 mmHg) AO VTI 33.0 (18-25 cm) RANJAN (VTI) 2.58 (2.5-4.5 cm2) Mitral Valve MV A Velocity 50.0 (40-130 cm/s) E/A Ratio 1.48 Pulmonary Valve PV Peak Velocity 87.0 (50-150 cm/s) MO End VMAX 148.0 cm/s Tricuspid Valve TR P. Velocity 197.00 cm/s RAP Estimate 10.00 mmHg RVSP 25.50 mmHg Left Ventricle The left ventricle is normal size. The left ventricular systolic function is normal. The left ventricular ejection fraction is within the normal range. There is normal left ventricular wall thickness. There is normal LV segmental wall motion. The left ventricular diastolic function is normal. LVEF is 60%. Right Ventricle The right ventricle is normal size. The right ventricular systolic function is normal. Atria The left atrium size is normal. The right atrium size is normal. There is no Doppler evidence of interatrial shunt. Aortic Valve The aortic valve opens well. There is no aortic valvular stenosis. No aortic regurgitation is present. Mitral Valve The mitral valve is normal in structure. No evidence of mitral valve stenosis. There is no mitral valve regurgitation noted. Tricuspid Valve The tricuspid valve leaflets are thin and pliable. Trace tricuspid regurgitation. RVSP is 1550 mmHg + RA pressure. Pulmonic Valve The pulmonary valve is normal in structure. Trace pulmonic regurgitation. Great Vessels The aortic root is normal in size. The ascending aorta is normal in size. The IVC is not well-visualized. Pericardium There is no pericardial effusion. Other Information Study Quality: Fair Conclusion Normal biventricular systolic function. No significant valvular stenosis or regurgitation. Electronically signed by : Bia Ramos MD 02/20/2024 23:09:42
[2024-02-17 08:46] LABS: Calcium 9.7 mg/dl (8.4-10.2); Glucose 100 mg/dl (74-100)
[2024-02-17 10:00] VITALS: BP 161/78; PULSE 64; RESP 18; O2SAT 95
[2024-02-17] MEDS: NITROGLYCERIN 0.4MG SL TABLET SL (10:00)
[2024-02-17 10:05] VITALS: BP 142/91; PULSE 67; RESP 18; O2SAT 97
[2024-02-17 10:10] VITALS: BP 127/70; PULSE 63; RESP 18; O2SAT 96
[2024-02-17 10:15] VITALS: BP 136/73; PULSE 61; RESP 18; O2SAT 96
[2024-02-17 10:20] VITALS: BP 127/55; PULSE 64; RESP 18; O2SAT 94
[2024-02-17] MEDS: 0.9 % SODIUM CHLORIDE 50 ML VIAL IV (10:22)
[2024-02-17] MEDS: IOPAMIDOL-370 (76%);100ML BOTTLE 85 ML IV (10:23)
[2024-02-17] MEDS: SODIUM CHLORIDE 0.9% 10ML SYR (RAD ONLY) 10 ML IV (10:23)
== END 2024-02-17 23:59 | disposition home or self-care (01) ==
PROVIDERS: PCP Internal Medicine Adolescent Medicine; Visit Provider Nurse Practitioner
DX: Z01.810 Encounter for preprocedural cardiovascular examination (principal); R06.09 Other forms of dyspnea; R94.31 Abnormal electrocardiogram [ECG] [EKG]
CPT/HCPCS: 75574; 80048; 93306; Q9967

== ENCOUNTER 2024-03-23 08:56 | Outpatient (CLI) | payer BC, SELFPAY ==
--- NOTE | 2024-03-23 09:02 | CT_ITS ---
FINAL REPORT TECHNIQUE: Axial CT images were performed from the lung apices through the upper abdomen. Coronal and sagittal reformats were submitted. This study was performed with techniques to keep radiation doses as low as reasonably achievable (ALARA). Individualized dose reduction techniques using automated exposure control or adjustment of mA and/or kV according to the patient's size were employed. CLINICAL HISTORY: LUNG FIBROSIS FINDINGS: There is no axillary adenopathy. There is no hilar or mediastinal mass or adenopathy. Heart size is normal. There is no pericardial or pleural effusion. The gallbladder has been surgically resected. There are mild patchy ground glass opacities noted, that may represent edema versus alveolitis. No evidence of pulmonary fibrosis is seen. Several calcified granulomas are noted in the lung parra bilaterally. IMPRESSION: Mild patchy ground glass opacities, alveolitis versus edema. No evidence of fibrosis in the lung parra is seen. Reviewed, Interpreted and Dictated by Alec Mejía III, MD Transcribed by Alma Ball Authenticated and [facility]
== END 2024-03-23 23:59 | disposition home or self-care (01) ==
LOC: RAD 08:57
PROVIDERS: PCP Internal Medicine Adolescent Medicine; Visit Provider Nurse Practitioner Family
DX: J84.10 Pulmonary fibrosis, unspecified (principal)
CPT/HCPCS: 71250

== ENCOUNTER 2024-04-01 07:37 | Outpatient (CLI) | payer BC, SELFPAY ==
[2024-04-01] MEDS: ALBUTEROL 0.083% 2.5 MG/3 ML NEB IH (09:38)
== END 2024-04-01 23:59 | disposition home or self-care (01) ==
LOC: RT 07:37
PROVIDERS: PCP Internal Medicine Adolescent Medicine; Visit Provider Nurse Practitioner Family
DX: J84.10 Pulmonary fibrosis, unspecified (principal)
CPT/HCPCS: 94060; 94727; 94729; J7613

== ENCOUNTER 2024-06-25 13:52 | Emergency (ER) | payer BC, SELFPAY ==
[2024-06-25 14:21] VITALS: BP 145/74; PULSE 83; RESP 20; TEMP 37; O2SAT 97; BMI 45.1
--- NOTE | 2024-06-25 14:48 | EXP.UTC ---
Discharge Plan Disposition Patient Disposition: Home, Self-Care Condition: Good Prescriptions Prescriptions: New ondansetron 4 mg tablet,disintegrating 4 mg PO Q8H 4 Days Qty: 12 0RF No Action omeprazole 20 mg capsule,delayed release(DR/EC) 20 mg PO DAILY Patient Comments: TAKE 1 CAPSULE BY MOUTH ONCE DAILY duloxetine 30 mg capsule,delayed release(DR/EC) 30 mg PO DAILY Patient Comments: TAKE 1 CAPSULE BY MOUTH TWICE DAILY Referrals Follow up/Referrals: Frankie Ritter MD [Primary Care Provider] - See instructions Activity Restrictions/Add. Instructions Additional Instructions/Restrictions: Follow up with bariatric center on Thursday. Increase fluids. Clinical Impressions Clinical Impression: Acute dehydration, Nausea Instructions Patient Instructions: DI for Nausea -- Adult, DI for Dehydration -- Adult Print Language Print Language: Yoruba Discharge ED Provider: Etta Mims [facility] [place] HPI General Stated complaint: dehydrated Mode of Arrival: Ambulatory Source of Information: Patient Time Seen by Provider: 06/25/24 14:46 Description of Symptoms (Recalled from Triage Doc. by RN): DEHYDRATION HEENT Symptoms (Recalled from RN notes): Yes Resp Symptoms (Recalled from RN notes): No Skin Symptoms (Recalled from RN notes): No MS Symptoms (Recalled from RN notes): No Functional Status (Recalled from RN notes): WNL History of Present Illness Provider Complaint: Pt reports that she has been on a cruise and for the last 2 days she has not been able to eat and has only tolerated sips of water. She reports she had a CASSANDRA-S in March and has had to get fluids a couple of times and feels like she needs them now. Related Data Home Medications ?Medication ?Instructions ?Recorded ?Confirmed duloxetine 30 mg capsule,delayed 30 mg PO DAILY 06/25/24 06/25/24 release omeprazole 20 mg capsule,delayed 20 mg PO DAILY 06/25/24 06/25/24 release Previous Rx's ?Medication ?Instructions ?Recorded ondansetron 4 mg disintegrating 4 mg PO Q8H 4 days #12 tabs 06/25/24 tablet Allergies Allergy/AdvReac Type Severity Reaction Status Date / Time No Known Allergies Allergy Verified 02/23/24 13:26 Worker's Comp Is this a Worker's Comp case?: No [facility] Disclaimer: The information contained in this section may have been updated after the patient was seen, as this information can be updated by other users. Medical History (Updated 06/25/24 @ 17:13 by Etta Mims APRN) Coronary-myocardial bridge Abnormal electrocardiogram [ECG] [EKG] Encounter for pre-operative cardiovascular clearance Rheumatoid arthritis Surgical History H/O: hysterectomy Family History Mother Coronary artery disease Stroke hemorrhagic Heart attack Sister Diabetes Social History Smoking Status: Never smoker alcohol intake: never current occupational status: employed Travel in the last 8 weeks: None ROS Obtained: Yes All systems reviewed & no additional complaints except as documented Constitutional Constitutional: Reports system reviewed and no additional complaints, except as documented, Reports fatigue, Reports poor appetite and Reports weakness Eyes Eyes: Reports system reviewed and no additional complaints, except as documented ENT Ears, Nose, Mouth, and Throat: Reports system reviewed and no additional complaints, except as documented Cardiovascular Cardiovascular: Reports system reviewed and no additional complaints, except as documented Respiratory Respiratory: Reports system reviewed and no additional complaints, except as documented Gastrointestinal Gastrointestingal: Reports system reviewed and no additional complaints, except as documented Genitourinary Female Genitourinary: Reports system reviewed and no additional complaints, except as documented Musculoskeletal Musculoskeletal: Reports system reviewed and no additional complaints, except as documented Integumentary/Breasts Skin/Breast: Reports system reviewed and no additional complaints, except as documented Neurologic Neurologic: Reports system reviewed and no additional complaints, except as documented and Reports weakness Endocrine Endocrine: Reports system reviewed and no additional complaints, except as documented and Reports fatigue Hematologic/Lymphatic Henatologic/Lymphatic: Reports system reviewed and no additional complaints, except as documented Allergic/Immunologic Allergic/Immunologic: Reports system reviewed and no additional complaints, except as documented Physical Exam General General appearance: alert and in no apparent distress Head Head exam: atraumatic and normocephalic Eye Eye exam: Present normal appearance ENT ENT exam: Present normal exam and normal oropharynx Neck Neck exam: Present normal inspection Chest Chest inspection: Present normal inspection and symmetric chest wall rise Respiratory Respiratory exam: Present normal lung sounds bilaterally Cardiovascular Cardiovascular exam: Present regular rate, normal rhythm and normal heart sounds Abdominal Exam Abdominal exam: Present soft and normal bowel sounds Extremities Exam Extremities exam: Present normal inspection Back Exam Back exam: Present normal inspection Neurological Exam Neurological exam: Present alert and oriented X3 Skin Skin exam: Present warm, dry, intact and other (decreased skin tugor.) Medical Decision Making Medical Records Screening: Per USPSTF and CDC recommendations, given the prevalence of disease in our region, it is our hospital?s policy to screen for HIV and viral Hepatitis for all patients aged 18 and over and those with ongoing risk factors. Mian Inquiry Pt receiving controlled substance: No Mian was queried for this patient: No Vital Signs: 06/25/24 14:21 Temperature 98.6 F Temperature Source Oral Pulse Rate [Left Brachial] 83 Respiratory Rate 20 Blood Pressure [Left Arm] 145/74 H Blood Pressure Mean [Left Arm] 97 02 Sat by Pulse Oximetry 97 Lab Data 06/25/24 15:37
[2024-06-25] MEDS: 0.9 % SODIUM CHLORIDE 1000ML 1,000 ML 999 ML IV (15:59)
[2024-06-25 16:59] VITALS: BP 162/76; PULSE 71
[2024-06-25 17:03] LABS: Basophils # 0.1 K/mm3 (0-0.2); Basophils % 1.5 % (0.1-2.0); Eosinophils # 0.1 K/mm3 (0.0-0.4); Hematocrit 40.6 % (37.0-47.0); Hemoglobin 13.8 g/dL (12.2-16.2); Lymphocytes # 1.4 K/mm3 (0.7-4.5); Lymphocytes % 31.8 % (10-50); Mean Corpuscular HGB Conc 34.1 g/dL (31.8-35.4); Mean Corpuscular Hemoglobin 29.6 pg (27.0-31.2); Mean Corpuscular Volume 86.9 fl (81-99); Mean Platelet Volume 11.3 fl (7.4-10.4); Monocytes # 0.3 K/mm3 (0.1-1.0); Monocytes % 7.1 % (1.7-9.3); Neutrophils # 2.5 K/mm3 (1.8-7.8); Neutrophils % 56.7 % (37.0-80.0); Platelet Count 257 K/mm3 (142-424); Red Blood Count 4.67 M/mm3 (4.20-5.40); Red Cell Distribution Width 14.7 % (11.5-17.5); White Blood Count 4.4 K/mm3 (4.8-10.8)
[2024-06-25 17:06] LABS: Albumin Level 4.7 g/dl (3.5-5.0); Chloride 103 mmol/L (98-107); Sodium 138 mmol/L (136-145)
[2024-06-25 17:07] LABS: Potassium 3.6 mmoL/L (3.5-5.1)
[2024-06-25 17:09] LABS: Alanine Aminotransferase 36 U/L (12-78); Albumin/Globulin Ratio 1.5 (1.1-1.8); Alkaline Phosphatase 73 U/L (38-126); Anion Gap 12.6 mEq/L (5-15); Aspartate Amino Transferase 68 U/L (14-36); Bilirubin,Total 1.4 mg/dl (0.2-1.3); Blood Urea Nitrogen 14 mg/dl (7-17); Carbon Dioxide 26 mmol/L (22.0-30.0); Creatinine Clearance Estimated 96 mL/min (50-200); Estimated Glomerular Filt Rate 104 ml/min (>60); GFR (African American) 126 ML/MIN (>60); Globulin 3.1 g/dL (1.3-3.2); Total Protein,Serum 7.8 g/dl (6.3-8.2)
[2024-06-25 17:10] LABS: Calcium 9.9 mg/dl (8.4-10.2); Glucose 91 mg/dl (74-100)
[2024-06-25 17:24] VITALS: BP 162/76; PULSE 71; RESP 20; TEMP 37
== END 2024-06-25 17:25 | disposition home or self-care (01) ==
PROVIDERS: Emergency Provider Nurse Practitioner Family; PCP Internal Medicine Adolescent Medicine
DX: E86.0 Dehydration (principal); R11.0 Nausea
CPT/HCPCS: 80053; 85025; 99213; G0381; J7030

== ENCOUNTER 2024-09-17 18:06 | Emergency (ER) | payer MEDICAID, SELFPAY ==
--- NOTE | 2024-09-17 19:28 | XR_ITS ---
PROCEDURE INFORMATION: Exam: XR Left Forearm Exam date and time: 09/17/2024 7:27 PM Age: 53 years old Clinical indication: Injury or trauma; Other: Dog bite; Other: Pain TECHNIQUE: Imaging protocol: Radiologic exam of the left forearm. Views: 2 views. Total images: 2 COMPARISON: No relevant prior studies available. FINDINGS: Bones/joints: No acute fracture or joint dislocation. No concerning bone lesions or calcifications. Unremarkable joint spaces. Soft tissues: Mild soft tissue swelling mid to distal forearm. No radiopaque foreign body. IMPRESSION: 1. No acute osseous abnormality. 2. Mild soft tissue swelling. 3. No radiopaque foreign body.
[2024-09-17 19:30] VITALS: BP 145/77; PULSE 76; RESP 19; TEMP 36.8; O2SAT 99; BMI 40.4
--- NOTE | 2024-09-17 19:30 | PC.NURSE ---
DOG BITE AREAS TO RIGHT HAND AND LEFT FOREARM CLEANED WITH HIBICLENSE AND STERILE WATER AT THIS TIME
--- NOTE | 2024-09-17 19:58 | EXP.UTC ---
Discharge Plan Disposition Patient Disposition: Home, Self-Care Condition: Good Prescriptions Prescriptions: New amoxicillin-pot clavulanate 875-125 mg Tablet 1 tab PO Q12H Qty: 20 0RF No Action omeprazole 20 mg capsule,delayed release(DR/EC) 20 mg PO DAILY Patient Comments: TAKE 1 CAPSULE BY MOUTH ONCE DAILY duloxetine 30 mg capsule,delayed release(DR/EC) 30 mg PO DAILY Patient Comments: TAKE 1 CAPSULE BY MOUTH TWICE DAILY Referrals Follow up/Referrals: Frankie Ritter MD [Primary Care Provider] - See instructions Activity Restrictions/Add. Instructions Additional Instructions/Restrictions: Clean bites with antibacterial soap and water May apply neosporin to abrasions Take oral antibitiocs as prescribed Follow up with your Family Doctor if needed Call back to the [facility] tomorrow for the offical reading of your xrays Clinical Impressions Clinical Impression: Dog bite of arm Instructions Patient Instructions: DI for Dog Bite, Amoxicillin and Clavulanic Acid Print Language Print Language: Croatian Discharge ED Provider: Lyly Gallegos [facility] HPI General Stated complaint: AO 09/17/24 1630 dog bite left arm Mode of Arrival: Ambulatory Source of Information: Patient Limitations: No Limitations Time Seen by Provider: 09/17/24 19:58 Description of Symptoms (Recalled from Triage Doc. 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 PATIENT'S LAST TDAP WAS DECEMBER 2023. 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 dog bite her on her left forearm States that she has several abrasions and bruising to the area States her Tetanus is up to date and dog owners advised that the dog was up to date on its shots but she was concerned with infection from being bitten Patient states that she got her tetanus last year when she was bitten by a dog Related Data Home Medications ?Medication ?Instructions ?Recorded ?Confirmed duloxetine 30 mg capsule,delayed 30 mg PO DAILY 06/25/24 09/17/24 release omeprazole 20 mg capsule,delayed 20 mg PO DAILY 06/25/24 09/17/24 release Previous Rx's ?Medication ?Instructions ?Recorded amoxicillin 875 mg-potassium 1 tab PO Q12H #20 tabs 09/17/24 clavulanate 125 mg tablet Allergies Allergy/AdvReac Type Severity Reaction Status Date / Time No Known Allergies Allergy Verified 02/23/24 13:26 Worker's Comp Is this a Worker's Comp case?: No [facility] Disclaimer: The information contained in this section may have been updated after the patient was seen, as this information can be updated by other users. Medical History (Updated 09/17/24 @ 20:12 by Lyly Gallegos APRN) Coronary-myocardial bridge Abnormal electrocardiogram [ECG] [EKG] Encounter for pre-operative cardiovascular clearance Rheumatoid arthritis Surgical History H/O: hysterectomy Family History Mother Coronary artery disease Stroke hemorrhagic Heart attack Sister Diabetes Social History Smoking Status: Never smoker alcohol intake: never current occupational status: employed Travel in the last 8 weeks: None Have you lived/traveled outside US in past 30 days?: No Contact w/someone who lives/traveled outside US past 30 days?: No Exposure to someone with infectious disease in past 14 days?: No Do you have a fever (greater than 100.4 F or 38 C)?: No Have you tested positive for COVID-19: No Exposed to someone with COVID-19 in past 14 days?: No Do you have a sore throat?: No Do you have a cough?: No Do you have any weakness?: No Do you have any diarrhea?: No Are you experiencing any unusual bleeding?: No Do you have any muscle aches/pain?: No Do you have any abdominal pain?: No Are you experiencing loss of taste or smell?: No ROS Obtained: Yes All systems reviewed & no additional complaints except as documented and Yes Systems reviewed as appropriate & no additional complaints except as documented Constitutional Constitutional: Reports system reviewed and no additional complaints, except as documented and Reports as per HPI ENT Ears, Nose, Mouth, and Throat: Reports system reviewed and no additional complaints, except as documented and Reports as per HPI Cardiovascular Cardiovascular: Reports system reviewed and no additional complaints, except as documented and Reports as per HPI Respiratory Respiratory: Reports system reviewed and no additional complaints, except as documented and Reports as per HPI Gastrointestinal Gastrointestingal: Reports system reviewed and no additional complaints, except as documented and as per HPI Genitourinary Female Genitourinary: Reports system reviewed and no additional complaints, except as documented and Reports as per HPI Musculoskeletal Musculoskeletal: Reports system reviewed and no additional complaints, except as documented, Reports as per HPI and Reports other Comments: dog bite to left forearm earlier today prior to arrival Physical Exam General General appearance: alert and in no apparent distress ENT ENT exam: Present normal exam, normal oropharynx, mucous membranes moist and TM's normal bilaterally Respiratory Respiratory exam: Present normal lung sounds bilaterally; Absent respiratory distress or wheezes Cardiovascular Cardiovascular exam: Present regular rate, normal rhythm and normal heart sounds Expanded Upper Extremity Exam Left: Forearm/Wrist exam: Present abrasion (multiple abrasions to left forearm no active bleeding, bruising noted ) Vascular exam: Normal capillary refill Neurological Exam Neurological exam: Present alert, oriented X3 and normal gait Medical Decision Making Medical Records Screening: Per USPSTF and CDC recommendations, given the prevalence of disease in our region, it is our hospital?s policy to screen for HIV and viral Hepatitis for all patients aged 18 and over and those with ongoing risk factors. Mian Inquiry Pt receiving controlled substance: No Mian was queried for this patient: No Vital Signs: 09/17/24 19:30 Temperature 98.2 F Temperature Source Oral Pulse Rate [Left Brachial] 76 Respiratory Rate 19 Blood Pressure [Left Arm] 145/77 H Blood Pressure Mean [Left Arm] 99 Blood Pressure Source [Left Arm] Automatic Cuff Blood Pressure Position [Left Arm] Sitting 02 Sat by Pulse Oximetry 99 Oxygen Delivery Method Room Air Orders (Tests/Meds): ORDERS Category Date Time Status XR forearm LT 2V Stat Exams 09/17/24 19:28 Taken Radiology Data #1: Image(s): Forearm Image Reviewed: Yes I reviewed the patient's radiology image Preliminary Findings: No Fracture Seen
[2024-09-17 20:08] VITALS: BP 145/77; PULSE 76; RESP 19; TEMP 36.8; O2SAT 99
[2024-09-17] MEDS: AMOXICILLIN/POT CLAVULAN 500MG TABLET 1 EACH PO (20:13)
== END 2024-09-17 20:18 | disposition home or self-care (01) ==
PROVIDERS: Emergency Provider Nurse Practitioner; PCP Internal Medicine Adolescent Medicine
DX: S51.852A Open bite of left forearm, initial encounter (principal); S61.451A Open bite of right hand, initial encounter; W54.0XXA Bitten by dog, initial encounter
CPT/HCPCS: 73090; 99213; G0381

== ENCOUNTER 2025-06-04 00:58 | Emergency (ER) | payer MEDICAID, SELFPAY ==
--- OUTSIDE RECORDS SUMMARY | 2025-04-26 05:15 | XMS_ITS ---
Author Organization [facility] Address [address] [place], [place] [address] Care Team Providers Care Hog Cutter Name Role Phone Frankie Ritter Primary Care Provider [phone] Frankie Ritter Unavailable Unavailable REASON FOR VISIT f/u Encounters Encounter Location Date Provider Diagnosis [facility] [address] [place], [place] [address] 04/26/2025 Frankie Ritter Plan Of Treatment No Information Progress Notes * Vanessa LMADOB: [birth year] (54 yo F)Acc No.[id number]:04/26/2025 Progress Notes Patient: Paty MEJÍA Vanessa Mcgowan Provider: Nicola Ritter MD :1970 A ge:54 Y S ex:Female Date:04/26/2025 Address:[id number] Subjective: * Chief Complaints: * 1 . F/u. * Medical History: Objective: * Vitals: Assessment: Plan: * Treatment: * * Electronic signature of Manpreet Ritter MD FAAP on 06/04/2025 at 01:03 AM EDT Sign off status: Pending * Provider: Nicola Ritter MD Date: 0 04/26/2025 Generated for Markell white/Reagan/eTransmitting on: 0 06/04/2025 01:03 AM EDT
--- OUTSIDE RECORDS SUMMARY | 2025-05-03 07:15 | XMS_ITS ---
Author Organization [facility] Address [address] [place], [place] [address] Care Team Providers Care X Ray Nurse Name Role Phone Frankie Ritter Primary Care Provider Frankie Ritter Unavailable Unavailable REASON FOR VISIT f/u Encounters Encounter Location Date Provider Diagnosis [facility] [address] [place], [place] [address] 05/03/2025 Frankie Ritter Plan Of Treatment No Information Progress Notes * Vanessa LAMDOB: [birth year] (54 yo F)Acc No.[id number]:05/03/2025 Progress Notes Patient: Paty MEJÍA Vanessa Mcgowan Provider: Nicola Ritter MD :1970 A ge:54 Y S ex:Female Date:05/03/2025 Address:[id number] Subjective: * Chief Complaints: * 1 . F/u. * Medical History: Objective: * Vitals: Assessment: Plan: * Treatment: * * Electronic signature of Manpreet Ritter MD FAAP on 06/04/2025 at 01:04 AM EDT Sign off status: Pending * Provider: Nicola Ritter MD Date: 0 05/03/2025 Generated for Kevini cindy/Reagan/eTransmitting on: 0 06/04/2025 01:04 AM EDT
--- OUTSIDE RECORDS SUMMARY | 2025-05-17 12:45 | XMS_ITS ---
Author Organization [facility] Address [address] [place], [place] [address] Care Team Providers Care Stretcher Helper Name Role Phone Frankie Ritter Primary Care Provider [phone] Frankie Ritter Unavailable Unavailable REASON FOR VISIT F/U Encounters Encounter Location Date Provider Diagnosis [facility] [address] [place], [place] [address] 05/17/2025 Frankie Ritter Plan Of Treatment No Information Progress Notes * Vanessa LAMDOB: [birth year] (54 yo F)Acc No.[id number]:05/17/2025 Progress Notes Patient: Paty MEJÍA Vanessa Mcgowan Provider: Nicola Ritter MD :1970 A ge:54 Y S ex:Female Date:05/17/2025 Address:[id number] Subjective: * Chief Complaints: * 1 . F/U. * Medical History: Objective: * Vitals: Assessment: Plan: * Treatment: * * Electronic signature of Manpreet Ritter MD FAAP on 06/04/2025 at 01:04 AM EDT Sign off status: Pending * Provider: Nicola Ritter MD Date: 0 05/17/2025 Generated for Markell white/Reagan/eTransmitting on: 0 06/04/2025 01:04 AM EDT
[2025-06-04 00:58] VITALS: BP 149/72; PULSE 78; RESP 17; TEMP 36.7; O2SAT 97; BMI 30.2
--- OUTSIDE RECORDS SUMMARY | 2025-06-04 01:03 | XMS_ITS | Clinical Summary ---
Author Organization [facility] Address [address] [place] [address] Care Team Providers Care Help Desk Analyst Name Role Phone Frankie Ritter MD Primary Care Provider [phone] Allergies No known active allergies Medications aspirin 81 MG EC tablet Take 1 tablet by mouth 1 (one) time each day. Active cholecalciferol (Vitamin D-3) 1.25 MG (79788 UT) capsule Take 1 capsule by mouth every 7 (seven) days. 12/08/19 25 Active DULoxetine (Cymbalta) [address] capsule Take 1 capsule by mouth in the morning and 1 capsule in the evening. 12/08/19 25 Active UNABLE TO FIND in the morning. Multivitamins without Iron. Active hydroxychloroquine (Plaquenil) 200 MG tabletIndications:I nflammatory polyarthropathy (CMS/HCC) Take 1 tablet by mouth daily. 90 tablet 3 12/21/19 25 Active Immunizations Immunization Administration Dates Next Due Influenza, injectable, quadrivalent 06/03/2017 Influenza, recombinant, quad rivalent, injectable, preservative free 07/25/2024 Tdap 01/11/2024,01/31/2016 Family History Medical History Relation Name Comments [place]'s disease Cousin Diabetes Father Stroke Mother Multiple sclerosis Niece 1 Tomisha Rheum arthritis Niece 2 Parkinson Disease Other Great Uncle Rheum arthritis Sister 1 Rheum arthritis Sister 2 Relation Name Status Comments Cousin Alive Father Mother Niece 1 Tomisha Alive Niece 2 Alive Other Great Uncle Alive Sister 1 Alive Sister 2 Alive Social History Tobacco Use Types Packs/Day Years Used Date Smoking Tobacco: Never Passive Smoke Exposure: Never Smokeless Tobacco: Never Tobacco Cessation:Counseling Given: Not Answered Alcohol Use Standard Drinks/Week Comments Never 0 (1 standard drink = 0.6 oz pur e alcohol) PHQ-2 Answer Date Recorded Patient Health Questionnaire-2 Score 0 12/20/2024 Comments Unknown Sex and Gender Information Value Date Recorded Sex Assigned at Not on file Legal Sex Female 2:15 PM EDT Gender Identity Not on file Sexual Orientation Not on file Last Filed Vital Signs Vital Sign Reading Time Taken Comments Blood Pressure 114/73 12/20/2024 11:09 AM EDT Pulse 60 12/20/2024 11:09 AM EDT Temperature 36.8 C (98.2 F) 12/20/2024 11:09 AM EDT Respiratory Rate 16 12/20/2024 11:0 9 AM EDT Oxygen Saturation 100% 12/20/2024 11: 09 AM EDT Inhaled Oxygen Concentration - - Weight 97.4 kg (214 lb 11.7 oz) 025 11:09 AM EDT Height 165.1 cm (5' 5 ) 12/20/2024 11:0 9 AM EDT Body Mass Index 35.73 12/20/2024 11:09 AM EDT Plan of Treatment Upcoming Encounters Date Type Department Care Team (Late st Contact Info) Description 06/20/2025 12:00 PM EDT Office Visit [facility] Medicine Specialties [address] [place] [address] Ev, September R, WATERFRONT DIRECTOR [address] [place] [address] Health Maintenance Due Date Last Done Comments [facility]-Infant/Child/Adol SDOH Screenings 1970 [facility]- SDOH Screenings 11/20/1987 [facility]-Adult SDOH Screenings 11/20/1987 [facility]-Hepatitis B Vaccines (1 of 3 - 19+ 3-dose series) 1988 [facility]-Pap Smear 1990 [facility]-Cervical Cancer Screening 11/20/1999 [facility]-HPV/Cotest 11/20/1999 CT Colonography 2014 Colonoscopy 2014 FIT-DNA 2014 FIT 2014 FOBT 2014 Sigmoidoscopy 2014 [facility]-Colorectal Cancer Screening 2014 [facility]-Pneumococcal Vaccine: 50+ Years (1 of 1 - PCV) 11/20/2019 [facility]-Zoster Vaccines (1 of 2) 11/20/2019 [id number] Vaccine (3 - season) 2025 01/21/2022, 12/31/2021 [facility]-Influenza Vaccine (#1) 2025 07/25/2024, [facility]-Depression Screening 12/20/2025 12/20/2024 [facility]-Breast Cancer Screening 12/23/202512/13, 12/24/2023, 06/23/2019, Additional history exists [facility]-DTaP,Tdap,and Td Vaccines (3 - Td or Tdap) 01/10/2034 01/11/2024, 01/31/2016 [facility]-HIV Screening Completed 12/20/2024 [facility]-Hepatitis C Screening Completed 12/20/2024 [facility]-Obesity Intervention Completed 12/20/2024 HPV Vaccines Aged Out No longer eligi ble based on patient's age to complete this topic [facility]-HIB Vaccines Aged Out No longer e ligible based on patient's age to complete this topic [facility]-Hepatitis A Vaccines Aged Out No longer eligible based on patient's age to complete this topic [facility]-IPV Vaccines Aged Out No longer e ligible based on patient's age to complete this topic [facility]-Rotavirus Vaccines Aged Out No lo nger eligible based on patient's age to complete this topic Procedures Procedure Name Priority Date/Time Associated Diagnosis Comments ACUTE HEPATITIS PANEL Routine 12/20/2024 12:46 PM EDT Inflammatory polyarthropathy (CMS/HCC) HIV 1/2 ANTIBODY/ANTIGEN SCREEN WITH REFLEX TO HIV I/II DIFFERENTIATION Routine 12/20/2024 12:46 PM EDT Inflammatory polyarthropathy (CMS/HCC) from Last 3 Months or Most Recently Relevant to Health Maintenance Results * HIV 1 & 2 Antibody/Antigen Screen (12/20/2024 12:46 PM EDT) Pathologist [facility] HIV 1 & 2 Antibody/Antigen Screen Non Reactive Non Reactive 12/20/2024 2:48 PM EDT [facility] Comment:Screening for HIV 1 & 2 antibodies, and P24 antigen is NONREACTIVE. No confirmatory testing is required. Blood Venous blood specimen / Unknown Venipuncture / Unknown 12/20/2024 12:46 PM EDT 12/20/2024 12:47 PM EDT us September R [facility] WATERFRONT DIRECTOR LAB BLOOD ORDERABLES Final Result Performing Organization Address [facility] Co de Phone Number [facility] [address] [place] [address] * Acute Hepatitis Panel (12/20/2024 12:46 PM EDT) [facility] Hepatitis B Surf Antigen Negative Negative 12/20/2024 3:17 PM EDT [facility] Hepatitis C Antibody Negative Negative 12/20/2024 3:17 PM EDT [facility] Hepatitis A Antibody IgM Negative Negative 12/20/2024 3:17 PM EDT [facility] Hepatitis B Core Antibody IgM Negative Negative 12/20/2024 3:17 PM EDT [facility] Blood Venous blood specimen / Unknown Venipuncture / Unknown 12/20/2024 12:46 PM EDT 12/20/2024 12:47 PM EDT us September R Ev [facility] LAB BLOOD ORDERABLES Final Result Performing Organization Address [facility] Co de Phone Number [facility] [address] [place] [address] from Last 3 Months or Most Recently Relevant to Health Maintenance Insurance Care Teams Help Desk Analyst Relationship Specialty Start Date End Date Frankie Ritter MD [address] [place] [address] PCP - General Internal Medicine 10/31/24
--- OUTSIDE RECORDS SUMMARY | 2025-06-04 01:03 | XMS_ITS | Encounter Summary ---
Author Organization [facility] Address [address] [place] [address] Care Team Providers Care Wind Turbine Mechanical Engineer Name Role Phone Frankie Ritter MD Primary Care Provider [phone] Reason for Referral * Consultation (Routine) - Authorized Specialty Diagnoses / Procedures Referred By Contac t Referred To Contact Neurology Diagnoses Paresthesia Frankie Ritter MD [address] [address] Phone: tel: fax: Referral ID Status Reason Start Date Expiration Date Visits Requested Visits Authorized [id number] Authorized Specialty Services Required 02/23/2025 08/25/2026 1 1 Encounter Details Date Type Department Care Team (Late st Contact Info) Description 02/23/2025 [facility] [address] [place] [address] Frankie Ritter MD [address] [place] [address] Paresthesia (Primary Dx) Social History Tobacco Use Types Packs/Day Years Used Date Smoking Tobacco: Never Passive Smoke Exposure: Never Smokeless Tobacco: Never Alcohol Use Standard Drinks/Week Comments Never 0 (1 standard drink = 0.6 oz pur e alcohol) PHQ-2 Answer Date Recorded Patient Health Questionnaire-2 Score 0 12/20/2024 Comments Unknown Sex and Gender Information Value Date Recorded Sex Assigned at Not on file Legal Sex Female 2:15 PM EDT Gender Identity Not on file Sexual Orientation Not on file documented as of this encounter Plan of Treatment Upcoming Encounters Date Type Department Care Team (Late st Contact Info) Description 06/20/2025 12:00 PM EDT Office Visit [facility] Medicine Specialties [address] [place] [address] Ev, September R, BRANCH MANAGER [address] [place] [address] Scheduled Referrals Name Type Priority Associated Diagnoses Order Schedule Ambulatory referral to Neurology Outpatient Referral Routine Paresthesia Expected: 02/23/2025 (Approximate), Expires: 08/27/2026 documented as of this encounter Visit Diagnoses Diagnosis Paresthesia- Primary Disturbance of skin sensation documented in this encounter Additional Health Concerns Assessment Noted Time A fall risk assessment has been complete d for the patient 12/20/2024 11:11 AM EDT A Body Mass Index follow-up plan has been documented for the patient 12/20/2024 12:19 PM EDT documented as of this encounter Care Teams Wind Turbine Mechanical Engineer Relationship Specialty Start Date End Date Frankie Ritter MD [address] [id number] [id number] PCP - General Internal Medicine 10/31/24 documented as of this encounter
--- OUTSIDE RECORDS SUMMARY | 2025-06-04 01:04 | XMS_ITS | Encounter Summary ---
Author Organization [facility] ([place], [place], [place], [place]) Address [address] [place] [address] Care Team Providers Care Printed Circuit Board Layout Designer Name Role Phone Frankie Ritter MD Primary Care Provider [phone] Reason for Visit * Reason Comments Medication Refill Encounter Details Date Type Department Care Team (Late st Contact Info) Description 04/03/2024 Refill [facility] Rheumatology [address] [place] [address] Alessandra Diaz MD [address] [facility] [address] [place] [address] Social History Tobacco Use Types Packs/Day Years Used Date Smoking Tobacco: Never Smokeless Tobacco: Never Alcohol Use Standard Drinks/Week Comments Never 0 (1 standard drink = 0.6 oz pur e alcohol) Food Insecurity Answer Date Recorded Food run out past 12 months Not on file 09/14 Food did not last past 12 months Not on file 10/02/2023 Employment Answer Date Recorded Help finding and keeping a job Not on file 0 10/02/2023 Family and Community Support Answer Rahul e Recorded Help with Day to Day Activities Not on file 10/02/2023 Feeling Lonely or Isolated Not on file 10/02 Educational Attainment Answer Date Glen rded Speak language other than Kinyarwanda at home Not on file 10/02/2023 Want help with school or training Not on file 10/02/2023 Substance Use Answer Date Recorded Used prescription meds for non-medical reasons N ot on file 10/02/2023 Used illegal drugs past 12 months Not on file 10/02/2023 Comments Unknown Sex and Gender Information Value Date Recorded Sex Assigned at Not on file Legal Sex Female 6:57 PM CDT Gender Identity Not on file Sexual Orientation Not on file documented as of this encounter Plan of Treatment Not on file documented as of this encounter Visit Diagnoses Not on filedocumented in this encounter Care Teams Printed Circuit Board Layout Designer Relationship Specialty Start Date End Date Frankie Ritter MD [address] [place] [address] PCP - General Adolescent Medicine 07/15/22 documented as of this encounter
--- OUTSIDE RECORDS SUMMARY | 2025-06-04 01:04 | XMS_ITS | Patient Health Record ---
Author Organization Formerly [facility] PE D JASON Address [address] [place], [place] [address] Care Team Providers Care Market Risk Manager Name Role Phone Frankie Ritter Primary Care Provider Frankie Ritter Unavailable Unavailable Migration, Provider Unavailable Unavailable Allergies No Known Allergies Results Component Value Reference Range Notes THYROID PANEL WITH TSH (7444 ) Reviewed date:02/27/2025 10:41:30 AM Interpretation: Performing Lab:[facility] [id number] [facility], WaveCheckAuxkNS[address] Steve Andre Notes/Report: NON-FASTING; NON-FASTING; NON-FASTING; NON-FASTING T3 UPTAKE 27 22-35 % T4 (THYROXINE), TOTAL 7.1 5.1-11.9 mcg/dL FREE T4 INDEX (T7) 1.9 1.4-3.8 TSH 1.54 Reference Range > or = 20 Years 0.40-4.50 Ranges First trimester 0.26-2.66 Second trimester 0.55-2.73 Third trimester 0.43-2.91 IRON, TIBC AND FERRITIN PANE L (5616) Reviewed date:02/24/2025 03:49:54 PM Interpretation: Performing Lab:[facility] [id number], AB[place] BiomedicalXupxPF[address] Steve Andre Notes/Report: NON-FASTING; NON-FASTING; NON-FASTING; NON-FASTING IRON, TOTAL 105 45-160 mcg/dL IRON BINDING CAPACITY 311 250-450 mcg/dL (linh c) % SATURATION 34 16-45 % (calc) FERRITIN 320 16-232 ng/mL COMPREHENSIVE METABOLIC PANE L (54078) Reviewed date:02/24/2025 03:49:54 PM Interpretation: Performing Lab:[facility], [facility] CenterMtiiUW[address] Steve Andre Notes/Report: NON-FASTING; NON-FASTING; NON-FASTING; NON-FASTING GLUCOSE 79 65-99 mg/dL Fasting reference interval UREA NITROGEN (BUN) 18 7-25 mg/dL CREATININE 0.65 0.50-1.03 mg/dL EGFR 104 > OR = 60 mL/min/1.73m2 BUN/CREATININE RATIO SEE NOTE: 6-22 (calc) Not Reported: BUN and Creatinine are within reference range. SODIUM 141 135-146 mmol/L POTASSIUM 4.2 3.5-5.3 mmol/L CHLORIDE 103 98-110 mmol/L CARBON DIOXIDE 30 20-32 mmol/L CALCIUM 9.5 8.6-10.4 mg/dL PROTEIN, TOTAL 7.0 6.1-8.1 g/dL ALBUMIN 4.5 3.6-5.1 g/dL GLOBULIN 2.5 1.9-3.7 g/dL (calc) ALBUMIN/GLOBULIN RATIO 1.8 1.0-2.5 (calc) BILIRUBIN, TOTAL 0.8 0.2-1.2 mg/dL ALKALINE PHOSPHATASE 113 37-153 U/L AST 35 10-35 U/L ALT 30 6-29 U/L CBC (INCLUDES DIFF/PLT) (639 9) Reviewed date:02/24/2025 03:49:54 PM Interpretation: Performing Lab:[facility] [place] [id number] [facility], [facility] CenterAxswUR[address] Steve Andre Notes/Report: NON-FASTING; NON-FASTING; NON-FASTING; NON-FASTING WHITE BLOOD CELL COUNT 3.2 3.8-10.8 Thousand/ uL RED BLOOD CELL COUNT 4.52 3.80-5.10 Million/uL HEMOGLOBIN 13.2 11.7-15.5 g/dL HEMATOCRIT 42.1 35.0-45.0 % MCV 93.1 80.0-100.0 fL MCH 29.2 27.0-33.0 pg MCHC 31.4 32.0-36.0 g/dL For adults, a slight decrease in the calculated MCHC value (in the range of 30 to 32 g/dL) is most likely not clinically significant; however, it should be interpreted with caution in correlation with other red cell parameters and the patient's clinical condition. RDW 11.8 11.0-15.0 % PLATELET COUNT 250 140-400 Thousand/uL MPV 12.0 7.5-12.5 fL ABSOLUTE NEUTROPHILS 1274 9508-7621 cells/uL ABSOLUTE LYMPHOCYTES 1382 798-8546 cells/uL ABSOLUTE MONOCYTES 346 200-950 cells/uL ABSOLUTE EOSINOPHILS 48 15-500 cells/uL ABSOLUTE BASOPHILS 48 0-200 cells/uL NEUTROPHILS 39.8 LYMPHOCYTES 46.4 MONOCYTES 10.8 EOSINOPHILS 1.5 BASOPHILS 1.5 Mammogram : Bilateral Reviewed date:01/01/2025 03:30:40 PM Interpretation: Performing Lab: Notes/Report: Reason For Referral Reason [facility] for c-scope Diagnosis 1 Colon cancer screeni ng (Z12.11) Referral Organization [facility] ROMMEL JASON Referring Provider First Name Frankie Referring Provider Last Name Stone Referring Provider Speciality Internal edicine Referred Organization [facility] Referred Address [address] [place], [place],[address], Referred Provider Specialty Gastroentero logy General Notes Kellie Fuller 2024 10:13:06 AM >Order faxed to Dr. Bowden at [facility] Referral Priority Routine Reason mamm at [facility] Diagnosis 1 Screening mammogram, encounter for (Z12.31) Referral Organization [facility] ROMMEL JASON Referring Provider First Name Frankie Referring Provider Last Name Stone Referring Provider Speciality Internal edicine Referred Organization [facility] Referred Address [address] [place], [place],[address], Referred Provider Specialty Diagnostic R adiology General Notes Kellie Fuller 2024 04:00:50 PM >[facility]ed to [facility] Referral Priority Routine Reason [facility] rheum Diagnosis 1 Rheumatoid arthritis involving multiple sites with positive rheumatoid factor (M05.79) Referral Organization [facility] PED JASON Referring Provider First Name Frankie Referring Provider Last Name Stone Referring Provider Speciality Internal edicine Referred Organization Referrals Referred Address [address] [place], [place],[address], Referred Provider Specialty Rheumatology General Notes Kellie Fuller 2024 10:17:54 AM >Placing through EPIC at , Kellie Fuller 11/01/2024 02:11:00 PM >Scheduled 11/08/2024 9:30 AM SARAH [facility] Rheumatology Ev, September R, TATTOO ARTIST Consult Referral Priority Routine Referral Appointment Date 11/08/2024 Reason Neurology second opi on-Dr. Hdz or neurology Patient request Dr. Hdz Diagnosis 1 Paresthesias (R20.2) Referral Organization [facility] PED JASON Referring Provider First Name Frankie Referring Provider Last Name Stone Referring Provider Speciality Internal M edicine Referred Organization [facility] Referred Address [address] [facility] [address] [place], [place],[address], Referred Provider Specialty Neurology General Notes Kellie Fuller 2024 11:23:07 AM >Placed with both and Dr. Rubio Referral Priority Routine Referral Appointment Date 06/19/[address] Spence - elevated ferritin Referral Organization [facility] PED JASON Referring Provider First Name Frankie Referring Provider Last Name Stone Referring Provider Speciality Internal edicine Referred Organization [facility] Referred Address [address],[address], Referred Provider Specialty Hematology/O ncology General Notes Kellie Fuller 2024 10:43:59 AM >sent to Dr. Spence- They will contact patient to schedule appt. Referral Priority Routine Medications Medication SIG (Take, Route, Frequency, Duration) Notes Start Date End Date Status Ergocalciferol 1.25 MG (77573 UT) 1 capsule Orally Active Aspirin 81 81 MG 1 tablet Orally Once a day Active Hydroxychloroquine Sulfate 200 MG as directed Orally once a day Active DULoxetine HCl 60 MG Take 1 capsule by mouth twice daily; Duration: 30 Active Multivitamin Patch Aid/daily *Please review and pick correct strength-formulat ion from enVista options. If intended option is not shown, discontinue and re-order from Quick Search* Active Immunizations Vaccine Route Administration Date Status Comme nts Influenza-Fluzone 3+years (NON-MEDICARE) IM Intramuscular 06/03/2017 Administered Flublok IM Intramuscular 07/25/2024 Administered Adacel (Tdap) Unknown 01/31/2016 Administered Social History Tobacco Use: Social History Observation Description Date Details (start date - stop date) Never Smoker NA - NA Smoking: Question Answer Notes Are you a: nonsmoker Problems Problem Type SNOMED Code ICD Code Onset Dates Problem Status W/U Status Risk Notes Problem Fibromyalgia (590662261) Fibromyalgia (M79.7) Active confirmed Problem Anxiety (26505586) Anxiety (F41.9) Active confirmed Problem Vitamin D deficiency (27017469) Vitamin D deficiency (E55.9) Active confirmed Problem Neuropathy (675771105) Neuropathy (G62.9) Active confirmed Problem Morbid obesity (856651118) Obesity, morbid, BMI 50 or higher (E66.01) Active confirmed Problem History of polyp of colon (situation) (968412718) History of colon polyps (Z86.010) Active confirmed Problem Plantar fascial fibromatosis (48389220) Plantar fascia syndrome (M72.2) Active confirmed Problem Rheumatoid arthritis (82046672) Rheumatoid arthritis involving multiple sites with positive rheumatoid factor (M05.79) Active confirmed Problem Reactive depression (situational) (11409207) Situational depression (F43.21) Active confirmed Problem Left rotator cuff syndrome (074573993261333) Rotator cuff syndrome of left shoulder (M75.102) Active confirmed Problem Paresthesia (finding) (70129263) Paresthesias (R20.2) Active confirmed Problem Menopausal symptom (97544420) Hot flashes due to menopause (N95.1) Active confirmed Problem Seasonal allergic rhinitis (367146454) Chronic seasonal allergic rhinitis, unspecified trigger (J30.2) Active confirmed Problem Hyperlipidemia (14237529) Mild hyperlipidemia (E78.5) Active confirmed Problem S/P gastric sleeve procedure (Z90.3) Active confirmed Vital Signs Heart Rate 78 /min 02/22/2025 Temperature 97.6 degrees Fahrenheit 02/22/2025 Blood pressure diastolic 80 mm Hg 02/22/2025 Height 65.5 in 02/22/2025 Blood pressure systolic 100 mm Hg 02/22/2025 Weight 200 lbs 02/22/2025 BMI 32.77 kg/m2 02/22/2025 Encounters Encounter Location Date Provider Diagnosis [facility] PED JASON [address] [place] [address] 12/17/2024 Provider Migration Healthcare maintenance Z00.00 [facility] JASON [address] [facility] [place] [address] 07/25/2024 Frankie Besson Immunization(s) administered Z23 ; S/P gastric sleeve procedure Z90.3 and Abnormal pulmonary function test R94.2 [facility] JASON [address] [facility] [place] [address] 10/26/2024 Frankie Besson S/P gastric sleeve procedure Z90.3 ; Colon cancer screening Z12.11 ; Screening mammogram, encounter for Z12.31 ; Rheumatoid arthritis involving multiple sites with positive rheumatoid factor M05.79 and Healthcare maintenance Z00.00 [facility] JASON [address] [facility] [place] [address] 02/22/2025 Frankie Besson Elevated ferritin level R79.89 ; Dizziness R42 ; Paresthesias R20.2 and S/P gastric sleeve procedure Z90.3 [facility] [address] [facility] [place] [address] 10/26/2024 Frankie Besson Breast cancer screening by mammogram Z12.31 [facility] [address] [facility] [place] [address] 02/27/2025 Frankie Besson [facility] [address] [address] 05/08/2025 Frankie Besson Paresthesias R20.2 Assessments Encounter Date Diagnosis (ICD Code) Assessment Notes Treatment Notes Treatment Clinical Notes Section Notes 07/25/2024 Immunization(s) administered (ICD-10 - Z23) 07/25/2024 S/P gastric sleeve procedure (ICD-10 - Z90.3) Patient has lost 46 pounds since last visit and is feeling well. She continues to have elevated ferritin levels. Patient advised to try vitamin patch without iron or take supplements by mouth excluding iron. She will repeat labs in 3 months at outside facility. Patient concerned about losing muscle mass. She was educated about ways to incorporate exercises of the muscles such as walking with 1 pound weights and doing bicep curls as she walks and davi workout programs. 10/26/2024 Colon cancer screening (ICD-10 - Z12.11) 10/26/2024 S/P gastric sleeve procedure (ICD-10 - Z90.3) Patient has lost ~40 pounds since last visit and feels well, congratulated her on recent weight loss! She continues to have slightly elevated ferritin levels however in the setting of her rheumatoid this could likely just be reactive to her inflammatory process. Will continue to monitor and patient to continue with vitamin patch 10/26/2024 Breast cancer screening by mammogram (ICD-10 - Z12.31) 02/22/2025 Dizziness (ICD-10 - R42) Obtain labs today Increase sodium intake via gatorade/powerade zero twice daily 02/22/2025 Elevated ferritin level (ICD-10 - R79.89) Patient reports at Bariatric clinic, labs revealed elevated Ferritin Monitor with labs today 05/08/2025 Paresthesias (ICD-10 - R20.2) 02/22/2025 Paresthesias (ICD-10 - R20.2) She has been following with neurology for about 4 years and would like a second opinion for paresthesias. 10/26/2024 Screening mammogram, encounter for (ICD-10 - Z12.31) 07/25/2024 Abnormal pulmonary function test (ICD-10 - R94.2) Most likely due to body habitus before surgery. Patient does not report any issues with breathing. Follow-up with pulmonology, possible repeat of PFTs. 10/26/2024 Rheumatoid arthritis involving multiple sites with positive rheumatoid factor (ICD-10 - M05.79) 02/22/2025 S/P gastric sleeve procedure (ICD-10 - Z90.3) Patient continues to do well with weight loss Congratulated patient on additional 29 pound weight loss since last visit. Patient continues to use vitamin patches 12/17/2024 Healthcare maintenance (ICD-10 - Z00.00) 10/26/2024 Healthcare maintenance (ICD-10 - Z00.00) Due for mammogram, will have that set up for her in the near future Due for colonoscopy, ordered today Shingles vaccine due, patient to get soon Plan Of Treatment Pending Test Test Name Order Date MRI : Shoulder, Left 02/15/2018 Venous Doppler : Lower Extremity 020 MRI : Head, Without Contrast 04/29/2019 Occupational Therapy : Eval & Treatment 09/22/2017 Occupational Therapy : Eval & Treatment 01/07/2018 C-CMP 11/23/2020 C-VITAMIN D, 1,25-DIHYDROXY 11/23/2020 M-Anti-DNA (DS) Ab Qn 05/25/2020 M-Iron and TIBC 05/25/2020 M-COVID PCR SINGLE RAPID 07/19/2020 Insurance Providers Payer Name Payer Address Payer Phone Subscriber Number Group Number Insured Name Patient Relationship to Insured Coverage Start Date Coverage End Date [facility] MEDICA[facility] [address] [address] [place] [address] [id number] Vanessa Boothe Self - patient is the insured Medical (General) History Medical History History ICD Code chronic obesity vitamind D deficiency mammograms at [facility]- last 01/06 normal Fibromyalgia M79.7 Surgical History Surgery Date(Month/Year) total hysterectomy 2010 appendectomy 1982 gallbladder removal 2005 colonoscopy with uncertain polyps 1990s bariatric surgery 04/12/24 Hospitalization History Reason Date(Month/Year) child 1990, 1994 appendectomy 2005 total hysterectomy 2010
--- OUTSIDE RECORDS SUMMARY | 2025-06-04 01:04 | XMS_ITS | Encounter Summary ---
Author Organization [facility] Address [address] [place] [address] Care Team Providers Care Reinstatement Clerk Name Role Phone Frankie Ritter MD Primary Care Provider [phone] Reason for Referral * Consultation (Routine) - Closed Specialty Diagnoses / Procedures Referred By Contac t Referred To Contact Rheumatology Diagnoses Rheumatoid arthritis involving multiple sites with positive rheumatoid factor (CMS/HCC) Frankie Ritter MD [address] [place] [address] [address] [address] Phone: tel: fax: Referral ID Status Reason Start Date Expiration Date V isits Requested Visits Authorized [id number] Closed Specialty Services Required 10/27/2024 04/28/2026 1 1 Encounter Details Date Type Department Care Team ([facility] Contact Info) Description 10/27/2024 [facility] [address] [place] [address] Frankie Ritter MD [address] [place], [place] [address] [address] Rheumatoid arthritis involving multiple sites with positive rheumatoid factor (CMS/HCC) (Primary Dx) Social History Tobacco Use Types Packs/Day Years Used Date Smoking Tobacco: Never Assessed Comments Unknown Sex and Gender Information Value Date Recorded Sex Assigned at Not on file Legal Sex Female 2:15 PM EDT Gender Identity Not on file Sexual Orientation Not on file documented as of this encounter Plan of Treatment Upcoming Encounters Date Type Department Care Team (Late st Contact Info) Description 06/20/2025 12:00 PM EDT [facility] Visit [facility] [address] [place] [address] Evseptember R, COMMUNITY SERVICE OFFICER COORDINATOR [address] [place] [address] Scheduled Referrals Name Type Priority Associated Diagnoses Order Schedule Ambulatory referral to Rheumatology Outpatient Referral Routine Rheumatoid arthritis involving multiple sites with positive rheumatoid factor (CMS/HCC) Ordered: 10/27/2024 documented as of this encounter Visit Diagnoses Diagnosis Rheumatoid arthritis involving multiple sites with positive rheumatoid factor (CMS/HCC)- Primary documented in this encounter Care Teams Reinstatement Clerk Relationship Specialty Start Date End Date Frankie Ritter MD [address] [place] [address] PCP - General Internal Medicine 10/31/24 documented as of this encounter
--- OUTSIDE RECORDS SUMMARY | 2025-06-04 01:04 | XMS_ITS | Encounter Summary ---
Author Organization [facility] Address [address] [place] [address] Care Team Providers Care Learning Center Coordinator Name Role Phone Frankie Ritter MD Primary Care Provider [phone] Reason for Referral * Consultation (Routine) - Authorized Specialty Diagnoses / Procedures Referred By Contjorge luis frankel Referred To Contact Rheumatology Diagnoses Fibromyalgia Vianney Love, TREE DRILLER [address] [address] Phone: tel: fax: Referral ID Status Reason Start Date Expiration Date Visits Requested Visits Authorized [id number] Authorized Specialty Services Required 01/08/2024 07/09/2025 1 1 Encounter Details Date Type Department Care Team (Latest Contact Info) Description 01/08/2024 [facility] [address] [place] [address] Vianney Love, TREE DRILLER [address] [address] Fibromyalgia (Primary Dx) Social History Tobacco Use Types Packs/Day Years Used Date Smoking Tobacco: Never Assessed Comments Unknown Sex and Gender Information Value Date Recorded Sex Assigned at Not on file Legal Sex Female 2:15 PM EDT Gender Identity Not on file Sexual Orientation Not on file documented as of this encounter Plan of Treatment Upcoming Encounters Date Type Department Care Team (Late Contact Info) Description 06/20/2025 12:00 PM EDT Office Visit [facility] Medicine Specialties [address] [place] [address] EvSeptember, TREE DRILLER [address] [place] [address] Scheduled Referrals Name Type Priority Associated Diagnoses Order Schedule Ambulatory referral to Rheumatology Outpatient Referral Routine Fibromyalgia Expected: 01/08/2024 (Approximate), Expires: 07/09/2025 documented as of this encounter Visit Diagnoses Diagnosis Fibromyalgia- Primary Unspecified myalgia and myositis documented in this encounter Care Teams Learning Center Coordinator Relationship Specialty Start Date End Date Frankie Ritter MD [address] [place] [address] PCP - General Internal Medicine 10/31/24 documented as of this encounter
--- OUTSIDE RECORDS SUMMARY | 2025-06-04 01:04 | XMS_ITS | Clinical Summary ---
Author Organization [facility] ([place], [place], [place], [place]) Address [address] [place] [address] Care Team Providers Care Artillery Maintenance Supervisor Name Role Phone Frankie Ritter MD Primary Care Provider + [phone] Allergies No known active allergies Medications aspirin 81 MG EC tablet Take 81 mg by mouth. Active diclofenac 1 % Gel Apply 2 g topically 4 (four) times daily. 30 g 3 2 Active DULoxetine (CYMBALTA) 60 MG capsule Take 1 capsule (60 mg total) by mouth daily. 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 Social History Tobacco Use Types Packs/Day Years [...] Date [place] Speak language other than [place] at home Not on file 10/02/2023 Want [...] Sign Reading Time Taken Comments Blood Pressure 121/72 11/10/2022 8:54 AM EST Pulse 81 11/10/2022 8:54 AM EST Temperature 36.8 C (98.2 F) 11/10/2022 8:54 AM EST Respiratory Rate 18 11/10/2022 8:54 AM EST Oxygen Saturation 96% 11/10/2022 8:54 AM EST Inhaled Oxygen Concentration - - Weight 147.9 kg (326 lb) 11/10/2022 8:54 AM EST Height 165.1 cm (5' 5 ) 11/10/2022 8:54 AM EST Body Mass Index 54.25 11/10/2022 8:54 AM EST Plan of Treatment Health Maintenance Due Date Last Done Comments CT Colonography 1969 Colonoscopy 1969 Colorectal Cancer Screening 1969 FOBT/FIT 1969 Fit-DNA (Cologuard) 1969 Sigmoidoscopy 1969 Depression Screening (12+) 1981 HIV Screening 1984 Hepatitis C Screening 11/20/1987 Pap Smear 1990 Breast Cancer Screening 2009 Lipid Panel 2014 Pneumococcal 50+ years (1 of 1 - PCV) 11/20/2019 Shingles Vaccine (Zoster) (1 of 2) 11/20/2019 Tobacco Cessation Counseling and Screening (12+) 11/10/2023 11/10/2022 COVID-19 VACCINE (3 - 2024- season) 05/15/202506/2022, 12/31/2021 Influenza Vaccine (#1) 2025 DTAP/TDAP/TD VACCINES (2 - Td or Tdap) 01/30/2026 Insurance [facility] Care Teams Artillery Maintenance Supervisor Relationship Specialty Start Date End Date Frankie Ritter MD [address] [place] [address] PCP - General Adolescent Medicine 07/15/22
--- OUTSIDE RECORDS SUMMARY | 2025-06-04 01:04 | XMS_ITS | Referral Summary ---
Author Organization [employer] ([place], [place], [place], [place]) Address [address] [place] [address] Care Team Providers Care Beekeeper Name Role Phone Frankie Ritter MD Primary Care Provider + [phone] Allergies No known active allergies Medications aspirin [...] Date [place] Speak language other than [place] at home Not on file 10/02/2023 Want [...] 11/10/2022 8:54 AM EST Plan of Treatment Not on file Insurance [facility] Care Teams Beekeeper Relationship Specialty Start Date End Date Frankie Ritter MD [address] [place] [address] PCP - General Adolescent Medicine 07/15/22
--- OUTSIDE RECORDS SUMMARY | 2025-06-04 01:04 | XMS_ITS | Clinical Summary ---
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 Active hydroxychloroqu ine (PLAQUENIL) 200 MG tablet Take 200 mg by mouth 2 (Two) Times a Day With Meals. 2 Active Diclofenac Sodium (VOLTAREN) 1 % gel gel APPLY 2 GRAMS TOPICALLY 4 TIMES DAILY 2 Active Cholecalciferol (Vitamin D3) 1.25 MG (66229 UT) capsule Take 1 capsule by mouth 1 (One) Time Per Week. 5 Active DULoxetine (CYMBALTA) 30 MG capsule Take 1 capsule by mouth Every 12 (Twelve) Hours. 5 Active NON FORMULARY Multivitamin patch daily Active carBAMazepine (TEGretol) 100 MG chewable tablet Chew 1 tablet 2 (Two) Times a Day. 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 Family History Medical History Relation Name Comments Breast cancer Maternal Aunt Dementia Maternal Grandmother Angela Lauren Dementia Mother Ivet Chris Hypertension Mother Ivet Chris Stroke Mother Ivet [place] Alzheimer's disease Paternal Grandmother Aneurysm Sister Ovarian cancer Neg Hx Relation Name Status Comments Maternal Aunt Maternal Grandmother Angela Lauren Mother Ivet Chris Paternal Grandmother Sister Social History Tobacco Use Types Packs/Day Years Used Date Smoking Tobacco: Never Passive Smoke Exposure: Never Smokeless Tobacco: Never Tobacco Cessation:Counseling Given: No Alcohol Use Standard Drinks/Week Comments Yes 0 (1 standard drink = 0.6 oz pur e alcohol) Rarely Comments No Sex and Gender Information Value Date Recorded Sex Assigned at Not on file Legal Sex Female 10:34 AM EDT Gender Identity Not on file Sexual Orientation Not on file Last Filed Vital Signs Vital Sign Reading Time Taken Comments Blood Pressure 130/80 12/13/2024 2:40 PM EDT Pulse 78 12/13/2024 2:40 PM EDT Temperature 36.7 C (98 F) 12/05/2020 11:08 AM EDT Respiratory Rate - - Oxygen Saturation 98% 12/13/2024 2:40 PM EDT Inhaled Oxygen Concentration - - Weight 99.8 kg (220 lb) 12/13/2024 2:40 PM EDT Height 165.1 cm (5' 5 ) 12/13/2024 2:40 PM EDT Body Mass Index 36.61 12/13/2024 2:40 PM EDT Plan of Treatment Upcoming Encounters Date Type Department Care Team (Late st Contact Info) Description 06/14/2025 3:15 PM EDT Office Visit [facility] [address] [facility] [address] [place] [phone] Mallorie Shah MD [address] [facility] [address] [place] [phone] Health Maintenance Due Date Last Done Comments Annual Gynecologic Pelvic an d Breast Exam 1969 COLOGUARD 2014 COLON CANCER SCREENING 5 YEA R SIGMOIDOSCOPY 2014 COLONOSCOPY [address] CANCER SCREENING [address] COLONOGRAPHY 2014 FECAL OCCULT BLOOD TEST 2014 FIT Testing (1 year) 2014 Pneumococcal Vaccine 50+ (1 of 1 - PCV) 11/20/2019 ZOSTER VACCINE (1 of 2) 11/20/2019 ANNUAL PHYSICAL 03/01/2020 INFLUENZA VACCINE 04/14/2025 07/25/2024, 06/03/2017 MAMMOGRAM 12/29/2026 12/29/2024, 12/13, 12/24/2023, Additional history exists TDAP/TD VACCINES (3 - Td or Tdap) 01/10/2034 024, 01/31/2016 HEPATITIS C SCREENING Completed 12/20/2024 Procedures Procedure Name Priority Date/Time Associated Diagnosis Comments MAMMO SCREENING DIGITAL TOMOSYNTHESIS BILATERAL W CAD Routine 12/26/2024 9:31 AM EDT Breast cancer screening by mammogram from Last 3 Months or Most Recently Relevant to Health Maintenance Results * Mammo Screening Digital Tomosynthesis Bilateral With CAD (12/26/2024 9:31 AM EDT) Anatomical Region Laterality Modality Breast N/A Mammography 12/29/2024 1:07 PM EDT Impressions 12/29/2024 1:09 PM EDT No findings suspicious for malignancy. ACR BI-RADS CATEGORY: 1, NEGATIVE RECOMMENDATION: Yearly mammogram, yearly clinical breast exam, and encourage self breast awareness. CAD was used. The standard false negative rate of mammography is between 10% and 25%. Complex patterns or increased breast density will markedly elevate the false negative rate of mammography. A letter, in lay terminology, with the results of this exam will be mailed to the patient. If there is a palpable area of concern, biopsy should be considered regardless of imaging findings. 12/29/2024 1:09 PM by Altagracia Mckinney MD on Narrative 12/29/2024 1:09 PM EDT ROUTINE DIGITAL SCREENING MAMMOGRAM WITH TOMOSYNTHESIS HISTORY: Routine screening. IMAGE COMPARISON: Extending to 2014. TECHNIQUE: Low dose full field digital breast tomosynthesis imaging was performed with 2D and 3D acquisitions consisting of bilateral CC and MLO views. FINDINGS: There are scattered fibroglandular densities. The fibroglandular pattern appears stable. There is no mass, worrisome microcalcifications, or architectural distortion to suggest development of malignancy. us Frankie Ritter MD IMG MAMMOGRAPHY ORDERABLES F inal Result from Last 3 Months or Most Recently Relevant to Health Maintenance Insurance [facility] [place] [address] Care Teams Back Shoe Worker Relationship Specialty Start Date End Date Frankie Ritter [facility] [address] [facility] [address] [place] [address] PCP - General Adolescent Medicine 12/24/23
--- NOTE | 2025-06-04 01:10 | PC.NURSE ---
Dr Paredes at bedside
--- NOTE | 2025-06-04 01:17 | CT_ITS ---
PROCEDURE INFORMATION: Exam: CT Abdomen And Pelvis With Contrast Exam date and time: 06/04/2025 1:52 AM Age: 54 years old Clinical indication: Abdominal pain; Additional info: L flank pain, possible stone TECHNIQUE: Imaging protocol: Computed tomography of the abdomen and pelvis with contrast. Radiation optimization: All CT scans at this facility use at least one of these dose optimization techniques: automated exposure control; mA and/or kV adjustment per patient size (includes targeted exams where dose is matched to clinical indication); or iterative reconstruction. Contrast material: ISOVUE; Contrast volume: 75 ml; Contrast route: IV; COMPARISON: CT CHEST WO CON 03/23/2024 9:31 AM FINDINGS: Liver: Normal. No mass. Gallbladder and biliary ducts: Cholecystectomy. Pancreas: Normal. No ductal dilation. Spleen: Normal. No splenomegaly. Adrenal glands: Normal. No mass. Kidneys and ureters: 4 mm stone at the left UVJ with moderate left-sided hydronephrosis, hydroureter and delayed enhancement of the left kidney. Stomach and bowel: Prior gastric bypass surgery. Appendix: No evidence of appendicitis. Intraperitoneal space: Unremarkable. No free air. No significant fluid collection. Vasculature: Unremarkable. No abdominal aortic aneurysm. Lymph nodes: Unremarkable. No enlarged lymph nodes. Urinary bladder: Unremarkable as visualized. Reproductive: Unremarkable as visualized. Bones/joints: Unremarkable. No acute fracture. Soft tissues: Unremarkable. IMPRESSION: 1. 4 mm stone at the left UVJ with moderate left-sided hydronephrosis, hydroureter and delayed enhancement of the left kidney. 2. Cholecystectomy. 3. Prior gastric bypass surgery.
--- NOTE | 2025-06-04 01:20 | PC.NURSE ---
pt given warm blanket, family at bedside
[2025-06-04 01:26] LABS: Hematocrit 37.4 % (37.0-47.0); Hemoglobin 12.9 g/dL (12.2-16.2); Immature Granulocytes % 0.3 %; Mean Corpuscular HGB Conc 34.5 g/dL (31.8-35.4); Mean Corpuscular Hemoglobin 30.4 pg (27.0-31.2); Mean Corpuscular Volume 88.0 fl (81-99); Nucleated Red Blood Cells % 0 %; Platelet Count 238 K/mm3 (142-424); Red Blood Count 4.25 M/mm3 (4.20-5.40); Red Cell Distribution Width-SD 37.5 fL; White Blood Count 7.0 K/mm3 (4.8-10.8)
[2025-06-04 01:28] LABS: Albumin Level 4.4 g/dl (3.5-5.0); Chloride 103 mmol/L (98-107); Potassium 3.8 mmoL/L (3.5-5.1); Sodium 139 mmol/L (136-145)
[2025-06-04 01:30] VITALS: BP 146/69; PULSE 70; O2SAT 100
[2025-06-04 01:31] LABS: Alanine Aminotransferase 29 U/L (12-78); Albumin/Globulin Ratio 1.5 (1.1-1.8); Alkaline Phosphatase 98 U/L (38-126); Anion Gap 12.8 mEq/L (5-15); Aspartate Amino Transferase 44 U/L (14-36); Bilirubin,Total 1.2 mg/dl (0.2-1.3); Blood Urea Nitrogen 23 mg/dl (7-17); Carbon Dioxide 27 mmol/L (22.0-30.0); Creatinine,Serum 0.70 mg/dl (0.52-1.04); Estimated Glomerular Filt Rate 87 ml/min (>60); GFR (African American) 105 ML/MIN (>60); Globulin 2.9 g/dL (1.3-3.2); Total Protein,Serum 7.3 g/dl (6.3-8.2)
[2025-06-04 01:32] LABS: Calcium 9.5 mg/dl (8.4-10.2); Glucose 134 mg/dl (74-100)
[2025-06-04] MEDS: LACTATED RINGERS 1000ML 1,000 ML 999 ML IV (01:36)
[2025-06-04] MEDS: KETOROLAC 15MG/ML VIAL 15 MG IV (01:37)
[2025-06-04 02:00] VITALS: BP 134/54; PULSE 83; O2SAT 99
--- NOTE | 2025-06-04 02:03 | HMH.EDGENADL ---
Discharge Plan Disposition Patient Disposition: Home, Self-Care Condition: Good Prescriptions Prescriptions: New ondansetron 4 mg tablet,disintegrating 4 mg PO QID PRN (Reason: nausea and vomiting) Qty: 10 0RF hydrocodone-acetaminophen 5-325 mg tablet 1 tab PO Q6H PRN (Reason: pain (scale score 7-10)) Qty: 10 0RF tamsulosin 0.4 mg capsule 0.4 mg PO HS Qty: 10 0RF No Action hydroxychloroquine 200 mg tablet PO Patient Comments: TAKE 1 TABLET BY MOUTH ONCE DAILY duloxetine 60 mg capsule,delayed release(DR/EC) PO Patient Comments: TAKE 1 CAPSULE BY MOUTH TWICE DAILY cholecalciferol (vitamin D3) 1,250 mcg (50,000 unit) capsule 1,250 mcg PO WEEKLY Patient Comments: TAKE 1 CAPSULE BY MOUTH ONCE A WEEK aspirin [Adult Low Dose Aspirin] 81 mg tablet,delayed release (DR/EC) 81 mg PO DAILY Referrals Follow up/Referrals: Ronald Kelly MD [Staff Physician, Urology] - See instructions Referral Note: L ureterolithiasis, please follow up Frankie Ritter MD [Primary Care Provider, Internal Medicine] - See instructions Activity Restrictions/Add. Instructions Additional Instructions/Restrictions: You were evaluated in the ER and are believed to be appropriate for discharge at this time. Take Tylenol ibuprofen if needed for pain, do not exceed the recommended dose on the bottle. Drink water and eat a small snack each time you take these medications to avoid side effects. If you have taken Tylenol and ibuprofen and are still having severe 7/10 pain or worse, then take the hydrocodone. The hydrocodone should only be taken as directed. It is a controlled substance and can cause dizziness, poor judgment, constipation, and addiction. Do not drive or operate machinery after taking this medication. Only take it if needed for severe, breakthrough pain. Be aware that the hydrocodone contains Tylenol (acetaminophen), so be cautious with it when considering your daily maximum dose of Tylenol. Do not take ibuprofen for more than 5 days in a row. Take the prescribed ondansetron (Zofran) if needed for nausea or vomiting. Take the prescribed tamsulosin nightly until the stone has passed. Drink plenty of water to help flush your urinary system and keep the stone moving. Urinate through a strainer to capture the stone when it passes. You have been referred to Dr. Kelly for urology follow-up, call his office for an appointment for reevaluation. Also call your primary care doctor for reevaluation in 2 to 3 days. Return to the ER with any new, worsening, or otherwise concerning symptoms including but not limited to fever, severe worsening pain, decreased urine output, or anything else you are worried about. Clinical Impressions Clinical Impression: Ureterolithiasis, Hydronephrosis Print Language Print Language: Ghanaian Discharge ED Provider: Young Paredes General Adult HPI General Chief complaint: PAIN Stated complaint: Abdominal Pain Time Seen by Provider: 06/04/25 01:02 Mode of Arrival: EMS Source of Information: Patient, EMS and Medical Record Description of Symptoms (Recalled from ER Triage Doc. by RN): Pt c/o sudden onset of severe lower ABD pain that radiates to L flank and L suprapubic pain. Denies any n/v/d. Denies any fever. Denies any urinary difficulty, pain, or discoloration. Denies any hx of kidney stones. 15mg Tordaol IV was given by EMS CAN RUNNER to ER and pt's pain has gone from 10/10 to 2/10 on [employer] History of Present Illness HPI narrative: 54-year-old female with history of gastric sleeve, TIA, hypertension, abnormal ECG presents to the ER complaining of left lower quadrant abdominal pain radiating to the left flank. Patient denies any nausea, vomiting, or diarrhea. She denies fever. She denies any dysuria or hematuria. With patient reports pain suddenly woke her up approximately 1 to 2 hours prior to arrival. She states she has not experienced anything like this before. She reports when EMS arrived pain was a 10 out of 10 and EMS reports they gave Toradol. Patient reports since receiving Toradol her pain is now a 2 out of 10. She states she is significantly more comfortable. She reports no numbness, tingling, or weakness, no headache or dizziness, no cough or congestion, no chest pain or difficulty breathing. No other complaints or concerns. Related Data Home Medications ?Medication ?Instructions ?Recorded ?Confirmed aspirin 81 mg tablet,delayed 81 mg PO DAILY 03/09/25 03/09/25 release (Adult Low Dose Aspirin) cholecalciferol (vitamin D3) 1,250 1,250 mcg PO WEEKLY 03/09/25 03/09/25 mcg (50,000 unit) capsule duloxetine 60 mg capsule,delayed mg PO 03/09/25 03/09/25 release hydroxychloroquine 200 mg tablet mg PO 03/09/25 03/09/25 Previous Rx's ?Medication ?Instructions ?Recorded hydrocodone 5 mg-acetaminophen 325 1 tab PO Q6H PRN pain (scale score 06/04/25 mg tablet 7-10) #10 tabs ondansetron 4 mg disintegrating 4 mg PO QID PRN nausea and 06/04/25 tablet vomiting #10 tabs tamsulosin 0.4 mg capsule 0.4 mg PO HS #10 caps 06/04/25 Allergies Allergy/AdvReac Type Severity Reaction Status Date / Time No Known Allergies Allergy Verified 03/09/25 11:25 [facility] Disclaimer: The information contained in this section may have been updated after the patient was seen, as this information can be updated by other users. Medical History (Updated 06/04/25 @ 03:12 by Young Paredes MD) Coronary-myocardial bridge Abnormal electrocardiogram [ECG] [EKG] Encounter for pre-operative cardiovascular clearance Rheumatoid arthritis Surgical History (Updated 06/04/25 @ 01:34 by Faiza Isaac RN) H/O gastric sleeve Hx laparoscopic cholecystectomy Hx of appendectomy H/O: hysterectomy Family History Mother Coronary artery disease Stroke hemorrhagic Heart attack Sister Diabetes Social History Smoking Status: Never smoker alcohol intake: never current occupational status: employed Travel in the last 8 weeks?: None Other Medical History Have you received the Flu Vaccine for this season: No Have you received the Pneumonia Vaccine: No ROS Obtained: Yes Systems reviewed as appropriate & no additional complaints except as documented per HPI Physical Exam General General appearance: alert and in no apparent distress Head Head exam: atraumatic and normocephalic Eye Eye exam: Present PERRL and EOMI ENT ENT exam: Present mucous membranes moist Neck Neck exam: Present normal inspection and full ROM Chest Chest inspection: Present symmetric chest wall rise Respiratory Respiratory exam: Present normal lung sounds bilaterally; Absent respiratory distress, wheezes or stridor Cardiovascular Cardiovascular exam: Present regular rate and normal rhythm Abdominal Exam Abdominal exam: Present soft; Absent distention or tenderness Extremities Exam Extremities exam: Present full ROM; Absent edema Back Exam Back exam: Present CVA tenderness (L) (Low left CVA tenderness); Absent CVA tenderness (R) or vertebral tenderness Neurological Exam Neurological exam: Present alert and oriented X3; Absent motor sensory deficit Psychiatric Psychiatric exam: Present normal affect and normal mood Skin Skin exam: Present warm and dry Medical Decision Making Medical Records Medical records reviewed: Yes I reviewed the patient's medical records. Screening: Per USPSTF and CDC recommendations, given the prevalence of disease in our region, it is our hospital?s policy to screen for HIV and viral Hepatitis for all patients aged 18 and over and those with ongoing risk factors. Mian Inquiry Pt receiving controlled substance: Yes Mian was queried for this patient: No Reason not queried -: Emergent pt cond-no time Risks and benefits of using a controlled substance: were discussed with pt by me Vital Signs: 06/04/25 00:58 06/04/25 01:30 06/04/25 02:00 Temperature 98.0 F Temperature Source Oral Pulse Rate 70 83 Pulse Rate [Right] 78 Respiratory Rate 17 Blood Pressure 146/69 H 134/54 L Blood Pressure [Left Arm] 149/72 H Blood Pressure Mean 94 Blood Pressure Mean [Left Arm] 97 Blood Pressure Source [Left Arm] Automatic Cuff 02 Sat by Pulse Oximetry 97 100 99 Oxygen Delivery Method Room Air Room Air Room Air Lab Data Lab Results 06/04/25 01:01: WBC 7.0, RBC 4.25, Hgb 12.9, Hct 37.4, MCV 88.0, MCH 30.4, MCHC 34.5, RDW 11.6, Plt Count 238, MPV 12.1 H, Neut % (Auto) 74.3, Lymph % (Auto) 18.8, [place] % (Auto) 5.0, Eos % (Auto) 0.9, Baso % (Auto) 0.7, Neut # (Auto) 5.2, Lymph # (Auto) 1.3, [place] # (Auto) 0.4, Eos # (Auto) 0.1, Baso # (Auto) 0.1, Sodium 139, Potassium 3.8, Chloride 103, Carbon Dioxide 27, Anion Gap 12.8, BUN 23 H, Creatinine 0.70, Estimated GFR 87, Est GFR ( Amer) 105, Glucose 134 H, Calcium 9.5, Total Bilirubin 1.2, AST 44 H, ALT 29, Alkaline Phosphatase 98, Total Protein 7.3, Albumin 4.4, Globulin 2.9, Albumin/Globulin Ratio 1.5, HIV Ag/Ab Combo Qual Negative 06/04/25 02:31: Urine Color Yellow, Urine Appearance Clear, Urine pH 7.5, Ur Specific [place] 1.020, Urine Protein Negative, Urine Glucose (UA) Negative, Urine Ketones 2+, Urine Blood Trace-i, Urine Nitrate Negative, Urine Bilirubin Negative, Urine Urobilinogen 2.0, Ur Leukocyte Esterase Trace, Urine RBC 3-5, Amorphous Sediment 2+ 06/04/25 01:01 06/04/25 01:01 Orders (Tests/Meds): ED MEDICATIONS Generic Name Dose Route Start Last Admin Trade Name Freq PRN Reason Stop Dose Admin Sodium Chloride 10 ml 06/04/25 02:24 06/04/25 02:30 Sodium Chloride 0.9% 10ml Syr (Rad Only) IV 07/04/25 02:23 10 ml NEEDED PRN Administration Maintain IV Site Discontinued Medications Generic Name Dose Route Start Last Admin Trade Name Freq PRN Reason Stop Dose Admin Lactated Ringer's 1,000 mls @ 999 mls/hr 06/04/25 01:18 06/04/25 02:47 Lactated Ringer's 1000 Ml Bag IV 06/04/25 02:18 Infused .Q1H1M ONE Infusion Iopamidol 75 ml 06/04/25 02:24 06/04/25 02:30 Iopamidol-370 (76%);100ml Bottle IV 06/04/25 02:25 75 ml ONCE ONE Administration Ketorolac Tromethamine 15 mg 06/04/25 01:23 06/04/25 01:37 Ketorolac 15mg/Ml Vial IV 06/04/25 01:24 15 mg ONCE ONE Administration Tamsulosin HCl 0.4 mg 06/04/25 03:03 Tamsulosin 0.4mg Capsule PO 06/04/25 03:04 ONCE ONE ORDERS Category Date Time Status CT abdomen pelvis w con Stat Cat Scan 06/04/25 01:17 Completed CBC w/Auto Diff [Complete Blood Count Auto Diff] Stat Lab 06/04/25 01:01 Completed CMP [Comprehensive Metabolic Panel] Stat Lab 06/04/25 01:01 Completed HIV Combo Stat Lab 06/04/25 01:01 Completed Hepatitis C Ab Qual. W/ RFX Stat Lab 06/04/25 01:01 Received Urinalysis and Microscopic Stat Lab 06/04/25 02:31 Completed Medical Decision Narrative: In summary, this 54-year-old female with comorbidities as described in the HPI presents to the emergency department today with left lower quadrant left flank pain. On initial evaluation patient is hemodynamically stable, afebrile, GCS 15, cardiopulmonary exam benign, no abdominal tenderness, rebound, or guarding, patient does have low left flank tenderness to percussion posteriorly. Differential diagnosis includes but is not limited to ureterolithiasis, hydronephrosis, diverticulosis, diverticulitis, urinary tract infection, pyelonephritis, kidney dysfunction, among others. Based on these concerns, I ordered hematologic and serum labs, urinalysis, CT abdomen pelvis. Initially patient reported her pain is tolerable and did not want any additional pain but her pain waxed and waned and came back reportedly 10 out of 10 so she received additional 15 mg Toradol. Labs reviewed by me demonstrate no leukocytosis or anemia, normal platelets, CMP with mild prerenal azotemia but no elevation in creatinine. Patient is already receiving IV fluids. CMP otherwise nonactionable, UA with trace blood but negative for findings of infection. CT abdomen pelvis personally interpreted demonstrates small left UVJ stone with hydronephrosis, see radiology read for final interpretation. Radiology read comments that the stone is 4 mm. Patient is still resting comfortably after having received Toradol. She has not required any narcotics in the ER. She received tamsulosin to help pass the stone. She is tolerating oral intake and appropriate for discharge at this time. I gave the patient prescription for hydrocodone for severe, breakthrough pain, Zofran for nausea, and tamsulosin for urinary tract dilation. Patient was referred to Dr. Kelly for outpatient urology follow-up. I had extensive discussion with the patient about careful use of controlled substances and the risk of addiction, overdose, and she is agreeable to using it only as directed. Patient was given instructions on symptomatic management, follow up instructions, and return precautions for the emergency department. Patient indicated understanding and was discharged in stable condition. Critical Care Critical Care Time Critical Care Time: No
--- NOTE | 2025-06-04 02:20 | PC.NURSE ---
pt taken to ct scan
[2025-06-04] MEDS: IOPAMIDOL-370 (76%);100ML BOTTLE 75 ML IV (02:30)
[2025-06-04] MEDS: SODIUM CHLORIDE 0.9% 10ML SYR (RAD ONLY) 10 ML IV (02:30)
--- NOTE | 2025-06-04 02:35 | PC.NURSE ---
urine collected and sent to lab.
[2025-06-04 02:37] LABS: Microscopic, Urine URINE MICROSCOPIC (MICROSCOPIC)
[2025-06-04 02:45] LABS: Bilirubin,Urine Negative (Negative); Color,Urine YELLOW (Yellow); Glucose,Urine (UA) Negative (Negative); Ketones,Urine 2+ (Negative); Leukocyte Esterase,Urine TRACE (Negative); PH,Urine 7.5 (5.0-8.5); Protein,Urine Negative (Negative); Specific Gravity, Urine 1.020 (1.005-1.030); Urobilinogen,Urine 2.0 EU/dl (0.2)
[2025-06-04 03:02] LABS: Amorphous Sediment,Urine 2+ /lpf
[2025-06-04 03:14] LABS: Hepatitis C Ab Qual. W/ RFX NEGATIVE (Negative)
[2025-06-04] MEDS: TAMSULOSIN 0.4MG CAPSULE 0.4 MG PO (03:25)
[2025-06-04 03:29] VITALS: BP 131/60; PULSE 77; RESP 16; TEMP 36.8; O2SAT 100
== END 2025-06-04 03:30 | disposition home or self-care (01) ==
PROVIDERS: Emergency Provider Emergency Medicine; PCP Internal Medicine Adolescent Medicine
DX: R10.32 Left lower quadrant pain (principal); N13.39 Other hydronephrosis
CPT/HCPCS: 74177; 80053; 81001; 85025; 86803; 87389; 96374; 96375; 99285; J1885; J7120; Q9967